=== PATIENT | female | born 2000 | race Two or more races ===

== ENCOUNTER 2021-11-26 09:52 | Outpatient (REF) | payer BC, SELFPAY ==
--- NOTE | ~2021-11-26 | XR_ITS ---
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 The paranasal sinuses are otherwise well aerated and clear. No opacification or air-fluid level to suggest sinusitis is seen. Bony structures are unremarkable. XR/XR sinus min 3V IMPRESSION: No evidence of sinusitis.
--- NOTE | ~2021-11-26 | XR_ITS ---
EXAMINATION: XR CHEST CLINICAL INFORMATION: Chronic cough COMPARISON: None TECHNIQUE: 2 views of the chest were obtained. FINDINGS: No significant abnormality is noted involving the heart, lungs, mediastinum, bony thorax or soft tissues. XR/XR chest 2V IMPRESSION: Unremarkable examination.
== END 2021-11-26 09:53 | disposition home or self-care (01) ==
LOC: HO.XRAY 09:52
PROVIDERS: PCP Pediatrics; Visit Provider Otolaryngology
DX: R05.9 Cough, unspecified (principal); J32.9 Chronic sinusitis, unspecified
CPT/HCPCS: 70220; 71046

== ENCOUNTER 2022-01-15 08:24 | Outpatient (REF) | payer BC, SELFPAY ==
[2022-01-15 10:11] LABS: MANUAL DIFF FLAG NO
[2022-01-15 10:27] LABS: Basophils Percent Auto 0.3 % (0-2); Eosinophils Absolute Auto 0.1 X10*3/uL (0.0-0.4); Eosinophils Percent Auto 0.8 % (0-4); Hematocrit 40.4 % (37.0-47.0); Hemoglobin 13.1 g/dl (12.0-16.0); Imm Gran Abs Auto 0.02 X10*3/uL (0.00-0.03); Imm Gran Pct Auto 0.3 % (0.0-0.4); Lymphocytes Absolute Auto 2.7 X10*3/uL (1.2-4.9); Lymphocytes Percent Auto 41.9 % (20-40); Mean Corpuscular HGB Conc 32.4 g/dl (31.0-35.0); Mean Corpuscular Hemoglobin 29.6 pg (27.0-33.0); Mean Corpuscular Volume 91.4 fL (80.0-98.0); Mean Platelet Volume 9.4 fL (9.4-12.3); Monocytes Absolute Auto 0.5 X10*3/uL (0.1-1.2); Monocytes Percent Auto 7.4 % (2-11); Neutrophils Absolute Auto 3.2 x10*3/uL (2.0-8.3); Neutrophils Percent Auto 49.3 % (45-73); Platelet Count 333 X10*3/uL (160-400); Red Blood Count 4.42 X10*6/uL (4.20-5.50); Red Cell Distribution Width 12.8 % (11.0-16.0); White Blood Count 6.5 X10*3/uL (4.8-10.8)
[2022-01-15 11:03] LABS: Erythrocyte Sedimentation Rate 4 MM/HR (0-20)
[2022-01-18 11:32] LABS: IgA 109 mg/dL (47-310); IgG 1467 mg/dL (600-1640); IgM 170 mg/dL (50-300)
[2022-01-22 18:21] LABS: Asperg fumigatus Precip Abs NEGATIVE (NEGATIVE); Micropoly faeni Abs NEGATIVE (NEGATIVE); Pigeon serum Abs NEGATIVE (NEGATIVE); Saccharo pora viridis Abs NEGATIVE (NEGATIVE); Thermo candidus Abs NEGATIVE (NEGATIVE); Thermoa vulgaris #1 NEGATIVE (NEGATIVE)
== END 2022-01-15 08:25 | disposition home or self-care (01) ==
LOC: HO.LAB 08:24
PROVIDERS: PCP Pediatrics; Visit Provider Hospitalist
DX: J45.909 Unspecified asthma, uncomplicated (principal); R06.00 Dyspnea, unspecified; R91.8 Other nonspecific abnormal finding of lung field; R14.2 Eructation
CPT/HCPCS: 36415; 82784; 82785; 85025; 85652; 86003; 86331; 86606; 86609

== ENCOUNTER → 2022-02-18 15:28 | Outpatient (BNVA) | payer BC, SELFPAY | PROVIDERS: PCP Pediatrics; Visit Provider Hospitalist | DX: Z13.89 Encounter for screening for other disorder (principal) ==

== ENCOUNTER 2022-06-25 10:30 | Outpatient (REF) | payer BC, SELFPAY ==
--- NOTE | ~2022-06-25 | FL_ITS ---
EXAMINATION: FL BARIUM SWALLOW CLINICAL INFORMATION: Gastroesophageal reflux disease without esophagitis. COMPARISON: None TECHNIQUE: Barium swallow examination is performed using fluoroscopic evaluation in addition to multiple fluoroscopic spot views. The patient is imaged both upright and prone and using both thick and thin sulfate along with effervescent granules. Fluoroscopy time: 2.0 minutes DAP: 3.092 Gycm2 Images: 44 FINDINGS: Following oral administration of thick barium and and barium coated turkey in upright view there is normal propagation of bolus from the oral cavity through the pharynx, esophagus into stomach without any evidence of obstruction, narrowing or stricture. On placing patient supine and prone lying and administration of thin barium there is normal distention of the esophagus without any intraluminal filling defect or narrowing. No extrinsic compression. FL/FL barium swallow IMPRESSION: Unremarkable barium swallow exam.
== END 2022-06-25 10:31 | disposition home or self-care (01) ==
LOC: HO.XRAY 10:30
PROVIDERS: PCP Pediatrics; Visit Provider Hospitalist
DX: K21.9 Gastro-esophageal reflux disease without esophagitis (principal)
CPT/HCPCS: 74220

== ENCOUNTER → 2022-09-27 15:38 | Outpatient (BNVA) | payer BC, SELFPAY | PROVIDERS: PCP Pediatrics; Visit Provider Hospitalist | DX: Z23 Encounter for immunization (principal); J45.40 Moderate persistent asthma, uncomplicated; R05.9 Cough, unspecified | CPT/HCPCS: 90471; 90686 ==

== ENCOUNTER 2023-09-29 11:19 | Outpatient (AMB) | payer BC, SELFPAY ==
--- NOTE | 2023-09-29 11:29 | A.OFFVIS_ITS ---
Intake Vital Signs 09/29/23 11:30 Height 4 ft 11 in Weight 120 lb BMI 24.2 BP 120/70 Blood Pressure Location Rt brachial Position Sitting Pulse 89 Pulse Source Pulse Oximeter Pulse Oximetry (%) 100 Oxygen Delivery Method Room Air Intake Visit Reasons: Asthma follow-up Grants Administrator Required: No Allergies No Known Allergies Allergy (Verified 09/29/23 11:33) HPI HPI Comments History of Present Illness Details The patient is a 22-year-old woman who was premature at 30 weeks gestation with a history of asthma. Apparently she was in usual state health until about couple years ago when her symptoms started getting worse again. Will recently she has been having significant cough. Moderate severity. Usually a coarse cough. Usually nonproductive although productive at times. Her cough tends to be throughout the day. She has a rescue inhaler which has been only partial improvement. She was then prescribed Wixela but she cannot get it due to prior approval. She was recently started on Symbicort. She has noticed some improvement on that. Currently she is expecting to have allergy testing in the next week or so. In the meantime she continues to have shortness of breath with activity. Also, feels some of back pain and difficulty expanding her lungs. In the office was so noted to have some wheezing on forced exhalation. We did try to perform spirometry although was difficult for her to do. It domonstrated FEF 25-75 of 60% consistent with small airways. As far as triggers the patient has a bird in her house. Denies any other pets. Not clear if there is any mold in the house. She did have a chest x-ray which appears in viewed by me demonstrating no acute disease. Also had sinus x-rays which were normal. 02/18/2022 the patient is here for a pulmonary follow-up visit. Overall she had been doing well. She was using her Symbicort twice a day with spacer. She was also getting relief from the nebulizer therapy. She did follow-up with additional blood work demonstrating an elevated IgE level the patient did have blood work demonstrating significant allergies to dust mites in addition to other environmental factors. In addition to mold. This is done with the skin testing. The patient is considering allergy shots. The meantime she continues on the antihistamine therapy and also on the singular. She states though that the Symbicort caused her to have some Back discomfort. Therefore, I did request that she decrease the dose to 1 puff twice a day with spacer. If she still continues to have difficulties she I will send her a new inhaler to the pharmacy. Advair HFA will be a good option for her. I do believe that the powder inhalers may be problematic for her throat. The patient recently developed a cold from family member due to a sick contact. Now she is coughing again she does have a nasal congestion and postnasal drip. Will continue to treat her for. We did talk about nasal rinsing and additional allergy therapies to minimize her allergies specially going to the spring[place]. If she continues to have respiratory symptoms she can consider starting Xolair which be a good option in order to treat her significant allergies and also treat her asthma with better response. 05/25/2022 the patient is here for a pulmonary follow-up visit overall the patient has been doing well. She has no longer using the Symbicort. She went back to using her rescue inhaler as needed. She does continue on the singular. she still having episodes of coughing spells. When she starts coughing is difficult for her to breathe in. She has a very sensitive larynx. It is likely resulting in some laryngeal spasms and also vocal cord dysfunction. The patient is also having some issues with her allergies. She is taking the allergy medicines with partial resolution of the symptoms. recently she did develop COVID-19. When she did have COVID seen the cough did get worse. She was also using her rescue inhaler more often. Now it has been about a month or more since that and she is going back to her baseline. Patient does have some issues with chronic cough and also some reflux issues. She also states that she has worsening coughing when she is eating bread. She was unsure if he was doing allergies. We had tested her for celiac and she did test negative however. All measures should wear of that. Most likely has to do with her swallow technique. She was a preemie. the patient also may have reflux issues. Patient will undergo a barium swallow. We also talked about considering speech therapy for or dysfunction in the meantime the patient will like to hold off on the maintenance inhalers. Although Symbicort may be a good option for her to use as needed. 09/27/2022 the patient is here for a pulmonary follow-up visit. Overall the patient has been doing well. She is no longer using any maintenance inhalers. She continues on her Singulair. She states that her cough is significantly better. She has been being diligent about her hypoallergenic covers and prevent thing dust allergies. The patient does benefit from further allergy immunotherapy. At this point the patient is going to school and is hard for her to make the time to have allergy shots. Whenever the patient is able she can let me know and I will refer her back to Allergy in order to consider immunotherapy we did review her barium swallow. No evidence of any reflux or any dysmotility issues. The patient was premature And did have GI issues. Appeared to be better at this time. Otherwise the patient is without other complaints. She did receive a flu shot today. She will follow-up in a year's time with PFTs. If however she has any worsening symptoms prior to that she is always welcome to call the office for an earlier evaluation. 09/29/2023 the patient is here for a pulmonary follow-up visit. Overall she is doing fairly well. She continues with the ongoing nonproductive cough. Moderate severity. Sometimes she does not realizes more people around her. The patient has not been using any nasal therapies. She does continue with her allergy medicine. Also with her allergy avoidance. The patient does have significant postnasal drip. Significant chronic rhinitis with cobblestoning of her posterior pharynx. We did do the spirometry in the office. Her spirometry is perfectly normal which is reassuring. She does have a short-acting beta agonist but she rarely uses it. Will go ahead and start her nasal therapies to minimize her chronic rhinitis and hopefully her upper airway cough syndrome. Otherwise patient is without any other complaints. She will get a flu shot today. [facility] Medical History (Updated 09/29/23 @ 22:22 by Gregg Calle MD) Chronic allergic rhinitis Cough Dyspnea Belching Asthma Social History (Updated 01/15/22 @ 08:36 by RICHARD Dyer) Patient Tobacco Use Status: Never used Tobacco Review of Systems Const Denies poor appetite Eyes Denies change in vision ENT Denies dysphagia, Reports nasal congestion and Reports post nasal drip Card Denies chest pain and Denies dyspnea Resp Reports cough and Denies dyspnea GI Reports belching, Denies dysphagia and Reports dyspepsia Musc Reports no additional complaints Skin/Breast Denies rash Neuro Reports no additional complaints Physical Exam Vital Signs: Last Vital Signs Pulse 89 09/29/23 11:30 BP 120/70 09/29/23 11:30 Pulse Ox 100 09/29/23 11:30 Oxygen Delivery Method Room Air 09/29/23 11:30 BMI result Body Mass Index 24.2 Const General: alert HEENT Throat: Yes postnasal drainage and Yes cobblestoning Neck Neck: Yes normal visual inspection, Yes full ROM and Yes no lymphadenopathy Chest Chest palpation & inspection: normal inspection of the chest Resp Effort & Inspection: Actively coughing Quality: dry Auscultation: clear to auscultation bilaterally and no wheezes Cardio Rate: regular rate Rhythm: regular rhythm Heart sounds: S1 normal heart sound present and S2 normal heart sound present GI Palpation (GI): Soft to palpation and nontender Auscultation: normal bowel sounds Skin General skin exam: rashes and/or lesions noted Office Procedures Spirometry Testing Spirometry Comments: Spirometry done in the office, Dr. Calle has the results results scanned to her chart. 62047- Spirometry Flu Questionnaire Does the patient have a severe egg allergy?: No Does the patient have severe life threatening allergies?: No Does the patient have a fever or illness today?: No Has the patient ever had Guillain-[place] Syndrome?: No Has the patient ever had any past reaction to a flu shot?: No Immunizations flu vacc [id number] 6mos up(PF) 60 mcg(15 mcgx4)/0.5 mL IM syringe Performing Provider: Gregg Calle MD [place] [facility] [place] [facility] Administered by: Libertad Guevara LPN on 09/29/23 12:08 Dose Route Admin Location Dispensed Lot Number Expiration Date NDC Delivery Helper 0.5 mL IM Left Deltoid 0.5 mL [id number] 05/13/24 85628-853-76 [employer] VIS Given Date VIS Provided VIS Publication Date 09/29/23 Single Vaccine 21 Eligibility Eligibility Date Funding Source Not [facility] Eligible 09/29/23 Private Assessment & Plan Assessment & Plan (1) Asthma: Code(s): J45.909 - Unspecified asthma, uncomplicated Qualifiers: Asthma severity: moderate Asthma persistence: persistent Asthma complication type: uncomplicated Qualified Code(s): J45.40 - Moderate persistent asthma, uncomplicated (2) Cough: Code(s): R05.9 - Cough, unspecified Qualifiers: Cough type: chronic Qualified Code(s): R05.3 - Chronic cough (3) Chronic allergic rhinitis: Code(s): J30.9 - Allergic rhinitis, unspecified Plan continue short-acting beta agonist as needed Xopenex as needed for chest tightness via nebulizer Tessalon Perles as needed for cough reflux diet restart fluticasone nasal spray in AM start astelin nasal spray consider Xolair w/wo allergy shots to treat her allergic asthma if worsens follow-up in 12 months with spirometry Orders: Orders AMB Spirometry Testing Today J45.909 - Unspecified asthma, uncomplicated Influenza [id number] Immunization Today Z23 - Encounter for immunization Medications: New fluticasone propionate 50 mcg/actuation 2 sprays intranasal DAILY 30 days 15.8 mL 11RF J31.0 - Chronic rhinitis azelastine administer into each nostril 2 sprays intranasal BID 30 days 30 mL 11RF Refilled montelukast 10 mg PO DAILY 90 days 90 tabs 3RF Coding Level of Care Code Est Pt Level 4 (09979) Diagnoses Moderate persistent asthma without complication J45.40 Asthma severity: moderate Asthma persistence: persistent Asthma complication type: uncomplicated Chronic cough R05.3 Cough type: chronic Chronic allergic rhinitis J30.9 CPT Codes Spirometry - CPT: 21247- Spirometry ([id number]) Time Spent (min) 17
[2023-09-29 11:30] VITALS: BP 120/70; PULSE 89; O2SAT 100; BMI 24.2
== END 2023-09-29 12:05 | disposition home or self-care (01) ==
PROVIDERS: PCP Pediatrics; Visit Provider Hospitalist
DX: J45.40 Moderate persistent asthma, uncomplicated (principal); R05.3 Chronic cough; J30.9 Allergic rhinitis, unspecified
CPT/HCPCS: 94010; 99214

== ENCOUNTER → 2023-09-29 11:19 | Outpatient (BNVA) | payer BC, SELFPAY | PROVIDERS: PCP Pediatrics; Visit Provider Hospitalist | DX: J45.40 Moderate persistent asthma, uncomplicated (principal); R05.3 Chronic cough; J30.9 Allergic rhinitis, unspecified; Z23 Encounter for immunization | CPT/HCPCS: 90471; 90686; 94010 ==

== ENCOUNTER 2024-02-02 10:47 | Outpatient (AMB) | payer BC, SELFPAY ==
[2024-02-02 10:57] VITALS: PULSE 86; O2SAT 98; BMI 25.0
--- NOTE | 2024-02-02 10:57 | A.OFFVIS_ITS ---
Intake Vital Signs 02/02/24 10:57 Height 4 ft 11 in Weight 124 lb BMI 25.0 Pulse 86 Pulse Source Pulse Oximeter Pulse Oximetry (%) 98 Oxygen Delivery Method Room Air Intake Visit Reasons: Want a check up on my asthma and on going cough Small Business Banking Officer Required: No Allergies No Known Allergies Allergy (Verified 02/02/24 10:58) HPI HPI Comments History of Present Illness Details The patient is a 23-year-old woman who was premature at 30 weeks gestation with a history of asthma. Apparently she was in usual state health until about couple years ago when her symptoms started getting worse again. Will recently she has been having significant cough. Moderate severity. Usually a coarse cough. Usually nonproductive although productive at times. Her cough tends to be throughout the day. She has a rescue inhaler which has been only partial improvement. She was then prescribed Wixela but she cannot get it due to prior approval. She was recently started on Symbicort. She has noticed some improvement on that. Currently she is expecting to have allergy testing in the next week or so. In the meantime she continues to have shortness of breath with activity. Also, feels some of back pain and difficulty expanding her lungs. In the office was so noted to have some wheezing on forced exhalation. We did try to perform spirometry although was difficult for her to do. It domonstrated FEF 25-75 of 60% consistent with small airways. As far as triggers the patient has a bird in her house. Denies any other pets. Not clear if there is any mold in the house. She did have a chest x-ray which appears in viewed by me demonstrating no acute disease. Also had sinus x-rays which were normal. 02/18/2022 the patient is here for a pulmonary follow-up visit. Overall she had been doing well. She was using her Symbicort twice a day with spacer. She was also getting relief from the nebulizer therapy. She did follow-up with additional blood work demonstrating an elevated IgE level the patient did have blood work demonstrating significant allergies to dust mites in addition to other environmental factors. In addition to mold. This is done with the skin testing. The patient is considering allergy shots. The meantime she continues on the antihistamine therapy and also on the singular. She states though that the Symbicort caused her to have some Back discomfort. Therefore, I did request that she decrease the dose to 1 puff twice a day with spacer. If she s till continues to have difficulties she I will send her a new inhaler to the pharmacy. Advair HFA will be a good option for her. I do believe that the powder inhalers may be problematic for her throat. The patient recently developed a cold from family member due to a sick contact. Now she is coughing again she does have a nasal congestion and postnasal drip. Will continue to treat her for. We did talk about nasal rinsing and additional allergy therapies to minimize her allergies specially going to the springtime. If she continues to have respiratory symptoms she can consider starting Xolair which be a good option in order to treat her significant allergies and also treat her asthma with better response. 05/25/2022 the patient is here for a pulmonary follow-up visit overall the kierra ent has been doing well. She has no longer using the Symbicort. She went back to using her rescue inhaler as needed. She does continue on the singular. she still having episodes of coughing spells. When she starts coughing is difficult for her to breathe in. She has a very sensitive larynx. It is likely resulting in some laryngeal spasms and also vocal cord dysfunction. The patient is also having some issues with her allergies. She is taking the allergy medicines with partial resolution of the symptoms. recently she did develop COVID-19. When she did have COVID seen the cough did get worse. She was also using her rescue inhaler more often. Now it has been about a month or more since that and she is going back to her baseline. Patient does have some issues with chronic cough and also some reflux issues. She also states that she has worsening coughing when she is eating bread. She was unsure if he was doing allergies. We had tested her for celiac and she did test negative however. All measures should wear of that. Most likely has to do with her swallow technique. She was a preemie. the patient also may have reflux issues. Patient will undergo a barium swallow. We also talked about considering speech therapy for or dysfunction in the meantime the patient will like to hold off on the maintenance inhalers. Although Symbicort may be a good option for her to use as needed. 09/27/2022 the patient is here for a pulmonary follow-up visit. Overall the patient has been doing well. She is no longer using any maintenance inhalers. She continues on her Singulair. She states that her cough is significantly better. She has been being diligent about her hypoallergenic covers and prevent thing dust allergies. The patient does benefit from further allergy immunotherapy. At this point the patient is going to school and is hard for her to make the time to have allergy shots. Whenever the patient is able she can let me know and I will refer her back to Allergy in order to consider immunotherapy we did review her barium swallow. No evidence of any reflux or any dysmotility issues. The patient was premature And did have GI issues. Appeared to be better at this time. Otherwise the patient is without other complaints. She did receive a flu shot today. She will follow-up in a year's time with PFTs. If however she has any worsening symptoms prior to that she is always welcome to call the office for an earlier evaluation. 09/29/2023 the patient is here for a pulmonary follow-up visit. Overall she is doing fairly well. She continues with the ongoing nonproductive cough. Moderate severity. Sometimes she does not realizes more people around her. The patient has not been using any nasal therapies. She does continue with her allergy medicine. Also with her allergy avoidance. The patient does have significant postnasal drip. Significant chronic rhinitis with cobblestoning of her posterior pharynx. We did do the spirometry in the office. Her spirometry is perfectly normal which is reassuring. She does have a short-acting beta agonist but she rarely uses it. Will go ahead and start her nasal therapies to minimize her chronic rhinitis and hopefully her upper airway cough syndrome. Otherwise patient is without any other complaints. She will get a flu shot today. 02/02/2024 the patient is here for a sick visit. She has been having hard time now for about a month. She has been coughing more regularly. The cough tends to be nonproductive in nature. Initially started like a viral syndrome. Then the respiratory symptoms subsided except for the cough. Is been pretty persistent. She has coughing a lot at nighttime. She has been using her rescue inhaler with partial improvement of symptoms. She did go to an urgent care where she was evaluated. She was told that she had bronchitis and she was given a course of steroids. The steroids and not help much. She also has a nebulizer that she started using more regularly. On exam she does have expiratory wheezing and a pulse exhalation cough. We did provide her a breathing treatment in the office and she did have some wheezing afterwards. Explained to the patient that she still continues have an exacerbation of her asthma. And will go ahead and treat her for a lower respiratory infection in the meantime as she could have developed a postviral bacterial infection that may be precipitating the symptoms. The patient is not taking a maintenance inhaler this time. Believe that she will benefit from starting a Advair HFA inhaler twice a day unt il her symptoms improve. [facility] Medical History (Updated 02/05/24 @ 19:46 by Grgeg Calle MD) Chronic allergic rhinitis Cough Dyspnea Belching Asthma Social History (Updated 01/15/22 @ 08:36 by RICHARD Dyer) Patient Tobacco Use Status: Never used Tobacco Review of Systems Const Reports difficulty sleeping and Denies poor appetite Eyes Denies change in vision ENT Denies dysphagia, Reports nasal congestion and Reports post nasal drip Card Denies chest pain and Denies dyspnea Resp Reports cough, Denies dyspnea and Reports wheezing GI Reports belching, Denies dysphagia and Reports dyspepsia Musc Reports no additional complaints Skin/Breast Denies rash Neuro Reports no additional complaints Aller/Immun Reports wheezing Physical Exam Vital Signs: Last Vital Signs Pulse 86 02/02/24 10:57 Pulse Ox 98 02/02/24 10:57 Oxygen Delivery Method Room Air 02/02/24 10:57 BMI result Body Mass Index 25.0 Const General: alert HEENT Throat: Yes postnasal drainage and Yes cobblestoning Neck Neck: Yes normal visual inspection, Yes full ROM and Yes no lymphadenopathy Chest Chest palpation & inspection: normal inspection of the chest Resp Effort & Inspection: Actively coughing Quality: dry and prolonged expiratory phase Auscultation: wheezes and diminished lung sounds Cardio Rate: regular rate Rhythm: regular rhythm Heart sounds: S1 normal heart sound present and S2 normal heart sound present GI Palpation (GI): Soft to palpation and nontender Auscultation: normal bowel sounds Skin General skin exam: rashes and/or lesions noted Assessment & Plan Assessment & Plan (1) Asthma: Code(s): J45.909 - Unspecified asthma, uncomplicated Qualifiers: Asthma complication type: with acute exacerbation Asthma persistence: persistent Asthma severity: moderate Qualified Code(s): J45.41 - Moderate persistent asthma with (acute) exacerbation (2) Cough: Code(s): R05.9 - Cough, unspecified Qualifiers: Cough type: chronic Qualified Code(s): R05.3 - Chronic cough (3) Chronic allergic rhinitis: Code(s): J30.9 - Allergic rhinitis, unspecified Plan Start Medrol pack Start Doxycycline Start Advair HFA continue short-acting beta agonist as needed Xopenex as needed for chest tightness via nebulizer Tessalon Perles as needed for cough reflux diet continue fluticasone nasal spray in AM astelin nasal spray consider Xolair w/wo allergy shots to treat her allergic asthma if worsens follow-up in March/April with spirometry Medications: New doxycycline hyclate 100 mg PO BID 10 days 20 caps 0RF benzonatate 200 mg PO BID 30 days PRN 60 caps 0RF cough fluticasone propion-salmeterol 115-21 mcg/actuation (Advair HFA) 2 puffs inhalation Q12H 30 days 12 grams 11RF methylprednisolone (Medrol (Blaise)) PO PER PKG DIR 6 days 21 ea 0RF Refilled levalbuterol HCl 1.25 mg (3 mL) inhalation BID PRN 180 mL 3RF shortness of breath or wheezing J44.9 - Chronic obstructive pulmonary disease, unspecified Coding Level of Care Code Est Pt Level 4 (28684) Diagnoses Moderate persistent asthma with acute exacerbation J45.41 Asthma complication type: with acute exacerbation Asthma persistence: persistent Asthma severity: moderate Chronic cough R05.3 Cough type: chronic Chronic allergic rhinitis J30.9 Time Spent (min) 18
== END 2024-02-02 11:33 | disposition home or self-care (01) ==
PROVIDERS: PCP Pediatrics; Visit Provider Hospitalist
DX: J45.41 Moderate persistent asthma with (acute) exacerbation (principal); R05.3 Chronic cough; J30.9 Allergic rhinitis, unspecified
CPT/HCPCS: 99214

== ENCOUNTER → 2024-02-02 10:47 | Outpatient (BNVA) | payer BC, SELFPAY | PROVIDERS: PCP Pediatrics; Visit Provider Hospitalist ==

== ENCOUNTER 2024-04-10 15:43 | Outpatient (AMB) | payer BC, SELFPAY ==
--- NOTE | 2024-04-10 15:46 | A.OFFVIS_ITS ---
Vital Signs 04/10/24 15:47 Height 4 ft 11 in Weight 123 lb BMI 24.8 Pulse 93 Pulse Source Pulse Oximeter Pulse Oximetry (%) 96 Oxygen Delivery Method Room Air Intake Visit Reasons: Asthma Radio Control Crane Operator Required: No Allergies No Known Allergies Allergy (Verified 04/10/24 15:48) HPI Comments Details: The patient is a 23-year-old woman who was premature at 30 weeks gestation with a history of asthma. Apparently she was in usual state health until about couple years ago when her symptoms started getting worse again. Will recently she has been having significant cough. Moderate severity. Usually a coarse cough. Usually nonproductive although productive at times. Her cough tends to be throughout the day. She has a rescue inhaler which has been only partial improvement. She was then prescribed Wixela but she cannot get it due to prior approval. She was recently started on Symbicort. She has noticed some improvement on that. Currently she is expecting to have allergy testing in the next week or so. In the meantime she continues to have shortness of breath with activity. Also, feels some of back pain and difficulty expanding her lungs. In the office was so noted to have some wheezing on forced exhalation. We did try to perform spirometry although was difficult for her to do. It domonstrated FEF 25-75 of 60% consistent with small airways. As far as triggers the patient has a bird in her house. Denies any other pets. Not clear if there is any mold in the house. She did have a chest x-ray which appears in viewed by me demonstrating no acute disease. Also had sinus x-rays which were normal. 09/27/2022 the patient is here for a pulmonary follow-up visit. Overall the patient has been doing well. She is no longer using any maintenance inhalers. She continues on her Singulair. She states that her cough is significantly better. She has been being diligent about her hypoallergenic covers and prevent thing dust allergies. The patient does benefit from further allergy immunotherapy. At this point the patient is going to school and is hard for her to make the time to have allergy shots. Whenever the patient is able she can let me know and I will refer her back to Allergy in order to consider immunotherapy we did review her barium swallow. No evidence of any reflux or any dysmotility issues. The patient was premature And did have GI issues. Appeared to be better at this time. Otherwise the patient is without other complaints. She did receive a flu shot today. She will follow-up in a year's time with PFTs. If however she has any worsening symptoms prior to that she is always welcome to call the office for an earlier evaluation. 09/29/2023 the patient is here for a pulmonary follow-up visit. Overall she is doing fairly well. She continues with the ongoing nonproductive cough. Moderate severity. Sometimes she does not realizes more people around her. The patient has not been using any nasal therapies. She does continue with her allergy medicine. Also with her allergy avoidance. The patient does have significant postnasal drip. Significant chronic rhinitis with cobblestoning of her posterior pharynx. We did do the spirometry in the office. Her spirometry is perfectly normal which is reassuring. She does have a short-acting beta agonist but she rarely uses it. Will go ahead and start her nasal therapies to minimize her chronic rhinitis and hopefully her upper airway cough syndrome. Otherwise patient is without any other complaints. She will get a flu shot today. 02/02/2024 the patient is here for a sick visit. She has been having hard time now for about a month. She has been coughing more regularly. The cough tends to be nonproductive in nature. Initially started like a viral syndrome. Then the respiratory symptoms subsided except for the cough. Is been pretty persistent. She has coughing a lot at nighttime. She has been using her rescue inhaler with partial improvement of symptoms. She did go to an urgent care where she was evaluated. She was told that she had bronchitis and she was given a course of steroids. The steroids and not help much. She also has a nebulizer that she started using more regularly. On exam she does have expiratory wheezing and a pulse exhalation cough. We did provide her a breathing treatment in the office and she did have some wheezing afterwards. Explained to the patient that she still continues have an exacerbation of her asthma. And will go ahead and treat her for a lower respiratory infection in the meantime as she could have developed a postviral bacterial infection that may be precipitating the symptoms. The patient is not taking a maintenance inhaler this time. Believe that she will benefit from starting a Advair HFA inhaler twice a day until her symptoms improve. 04/10/2024 the patient is here for pulmonary follow-up visit. She has feeling a lot better. She did complete the antibiotics in the prednisone. The patient also was prescribed Advair but it was not covered apparently. Therefore she only has a rescue inhaler right now. She does not use the inhaler often typically does not times a week. She also has a nebulizer as well. The patient also stopped using her Singulair. Ext vital to go back on specially with her sensitive asthma in the fact that she has not on any maintenance therapy. Right now she is doing well and she does not have any wheezing on examination and she is breathing comfortably. Therefore, will hold off on inhaled cortical steroids at this time. She does have a cough the cough is hacky dry and is likely an upper airway cough syndrome. Carmen Ham worked well in the past. Will go ahead and provide her a script that she can use as needed for cough worsens. In deed went back on the singular also help her cough as it will help with her allergic symptoms. [facility] Medical History (Updated 04/10/24 @ 23:18 by Gregg Calle MD) Chronic allergic rhinitis Cough Dyspnea Belching Asthma Social History (Updated 01/15/22 @ 08:36 by RICHARD Dyer) Patient Tobacco Use Status: Never used Tobacco Review of Systems Const Reports difficulty sleeping and Denies poor appetite Eyes Denies change in vision ENT Denies dysphagia, Reports nasal congestion and Reports post nasal drip Card Denies chest pain and Denies dyspnea Resp Reports cough, Denies dyspnea and Denies wheezing GI Denies belching, Denies dysphagia and Reports dyspepsia Musc Reports no additional complaints Skin/Breast Denies rash Neuro Reports no additional complaints Aller/Immun Denies wheezing Physical Exam Vital Signs: Last Vital Signs Pulse 93 04/10/24 15:47 Pulse Ox 96 04/10/24 15:47 Oxygen Delivery Method Room Air 04/10/24 15:47 BMI result Body Mass Index 24.8 Const General: alert HEENT Throat: Yes postnasal drainage and Yes cobblestoning Neck Neck: Yes normal visual inspection, Yes full ROM and Yes no lymphadenopathy Chest Chest palpation & inspection: normal inspection of the chest Resp Effort & Inspection: normal respiratory effort Auscultation: clear to auscultation bilaterally and no wheezes Cardio Rate: regular rate Rhythm: regular rhythm Heart sounds: S1 normal heart sound present and S2 normal heart sound present GI Palpation (GI): Soft to palpation and nontender Auscultation: normal bowel sounds Skin General skin exam: rashes and/or lesions noted Assessment & Plan Assessment & Plan (1) Asthma: Code(s): J45.909 - Unspecified asthma, uncomplicated Category: Medical Qualifiers: Asthma complication type: uncomplicated Asthma persistence: persistent Asthma severity: moderate Qualified Code(s): J45.40 - Moderate persistent asthma, uncomplicated (2) Cough: Code(s): R05.9 - Cough, unspecified Category: Medical Qualifiers: Cough type: chronic Qualified Code(s): R05.3 - Chronic cough (3) Chronic allergic rhinitis: Code(s): J30.9 - Allergic rhinitis, unspecified Category: Medical Plan Advair HFA continue short-acting beta agonist as needed Xopenex as needed for chest tightness via nebulizer Tessalon Perles as needed for cough reflux diet continue fluticasone nasal spray in AM restart Singulair PM consider Xolair w/wo allergy shots to treat her allergic asthma if worsens follow-up in March/April with spirometry Medications: Refilled benzonatate 200 mg PO BID PRN 60 caps 5RF cough 30 days Coding Level of Care Code Est Pt Level 4 (26177) Diagnoses Moderate persistent asthma without complication J45.40 Asthma complication type: uncomplicated Asthma persistence: persistent Asthma severity: moderate Chronic cough R05.3 Cough type: chronic Chronic allergic rhinitis J30.9 Time Spent (min) 16
[2024-04-10 15:47] VITALS: PULSE 93; O2SAT 96; BMI 24.8
== END 2024-04-10 16:02 | disposition home or self-care (01) ==
PROVIDERS: PCP Pediatrics; Referring Provider Pediatrics; Visit Provider Hospitalist
DX: J45.40 Moderate persistent asthma, uncomplicated (principal); R05.3 Chronic cough; J30.9 Allergic rhinitis, unspecified
CPT/HCPCS: 99214

== ENCOUNTER → 2024-04-10 15:43 | Outpatient (BNVA) | payer BC, SELFPAY | PROVIDERS: PCP Pediatrics; Visit Provider Hospitalist ==

== ENCOUNTER 2025-02-15 16:41 | Outpatient (REF) | payer BC, SELFPAY ==
[2025-02-15 16:52] LABS: MANUAL DIFF FLAG NO
--- OUTSIDE RECORDS SUMMARY | 2025-02-15 17:05 | XMS_ITS | Encounter Summary ---
Author Organization [facility] Address [address] [place] [address] Phone Care Team Providers Care Program Lead Name Role Phone Emperatriz Sosa MD Primary Care Provider [phone] Encounter Details Date Type Department Care Team (Late st Contact Info) Description 10/02/2013 Nurse Only [address] [address] Social History Tobacco Use Types Packs/Day Years Used Date Smoking Tobacco: Never Assessed Comments Unknown Sex and Gender Information Value Date Recorded Sex Assigned at Female 12/14/2019 4:21 PM EST Legal Sex Female 4:07 PM EST Gender Identity Female 12/14/2019 4:21 PM EST Sexual Orientation Straight 12/14/2019 4: 21 PM EST documented as of this encounter Nursing Notes * UNKNOWN, HISTORICAL - 10/02/2013 9:22 AM EST Janett Grady. 2000 NURSE NOTE/VERBAL ORDERS Office/Outpatient Visit Visit Date: Oct 02, 2013 09:22 am Provider: Joyce Mensah LPN (Statement Services Representative: Pramod Polanco MD; Tribal Judge: Joyce Mensah LPN) Location: [facility]. ECTIVE: CC: She is here for the Flu Clinic. enters with dad HPI: No known chronic health conditions. Fever or illness is not present today. No trouble breathing or hives after eating eggs She has not had a reaction to the flu vaccine or other immunization. Flu vaccine VIS was given today.(interim 06/08/13) There were no questions or concerns voiced at today's visit. Allergies: Last Reviewed on 02/15/2013 4:13:15 PM by Alejandra Talley No Known Drug Allergies. OBJECTIVE: Exams: GENERAL APPEARANCE: Alert, active, looks well, mood appropriate ASSESSMENT: V04.81 Flu Clinic ORDERS: Procedures Ordered: Flu Vaccine (In-House) Immunization administration (includes percutaneous, intradermal, subcutaneous or intramuscular injec (In-House) PLAN: Flu Clinic Influenza vaccine > 3 yr given No contraindications noted for flu vaccines. Tolerated well, left office in good condition. Orders: Flu Vaccine (In-House) Immunization administration (includes percutaneous, intradermal, subcutaneous or intramuscular injec (In-House) Patient Recommendations: For Flu Clinic: Influenza (Given) CHARGE CAPTURE: Primary Diagnosis: V04.81 Flu Clinic Orders: [id number] Flu Vaccine (In-House) [address] Immunization administration (includes percutaneous, intradermal, subcutaneous or intramuscular injec (In-House) documented in this encounter Plan of Treatment Not on file documented as of this encounter Visit Diagnoses Not on filedocumented in this encounter Care Teams Program Lead Relationship Specialty Start Date End Date Emperatriz Sosa MD [address] [place] [id number] PCP - General Pediatrics 11/23/22 01/09/25 documented as of this encounter
--- OUTSIDE RECORDS SUMMARY | 2025-02-15 17:05 | XMS_ITS | Clinical Summary ---
Author Organization [facility] Address [address] [facility] [address] [place] [address] Phone Care Team Providers Care Sports Recruiter Name Role Phone Donato Wu MD Primary Care Provider Social History Tobacco Use Types Packs/Day Years Used Date Smoking Tobacco: Never Assessed Education Answer Date Recorded Are you interested in more education? Not on farooq e 03/11/2023 Are you concerned about learning? Not on file 03/11/2023 No 03/11/2023 No 03/11/2023 Digital Access Answer Date Recorded No 04/11/2023 No 04/11/2023 No 04/11/2023 Reliable internet access at home? Not on file 04/11/2023 Device with a working camera? Not on file Sex and Gender Information Value Date Recorded Sex Assigned at Not on file Gender Identity Not on file Sexual Orientation Not on file Plan of Treatment Upcoming Encounters Date Type Department Care Team ([facility] st Contact Info) Description 12/04/2025 11:30 AM EST Office Visit [facility] Medicine [address] [place] [address] Tracey Landa MD [address] [facility], [address] [place] [address] [email or web address] Health Maintenance Due Date Last Done Comments Adult Td,Tdap Booster 2001 DEPRESSION SCREENING 2013 SMOKING Hx and SMOKELESS TOBACCO SCREENING 2014 HPV VACCINES (1 - 3-dose series) 2016 CHLAMYDIA SCREENING 2017 HEPATITIS C SCREENING 2019 HIV ONE-TIME SCREENING (18-65 YEARS) 2019 PAP SMEAR 2022 INFLUENZA VACCINE (#1) 2024 9, 10/02/2013, 09/14/2012, Additional history exists COVID-19 VACCINE (2023- season) 2024 HEPATITIS A VACCINES Aged Out No long er eligible based on patient's age to complete this topic HIB VACCINES Aged Out No longer eligi ble based on patient's age to complete this topic MENINGOCOCCAL VACCINES (ACWY) Aged Out No longer eligible based on patient's age to complete this topic PNEUMOCOCCAL VACCINES (0-49 years) Aged Out No longer eligible based on patient's age to complete this topic Medical Devices Not on file Care Teams Sports Recruiter Relationship Specialty Start Date End Date Donato Wu MD [address] [place] [address] [address] [place] [address] PCP - General Pediatrics 06/26/19 Additional Source Comments The information contained in this document represents components of the legal health record. It is not the complete legal health record.[facility]
--- OUTSIDE RECORDS SUMMARY | 2025-02-15 17:05 | XMS_ITS | Encounter Summary ---
Author Organization [facility] Address [address] [place] [address] Phone Care Team Providers Care Master Data Analyst Name Role Phone Emperatriz Sosa MD Primary Care Provider Encounter Details Date Type Department Care Team (Late st Contact Info) Description 09/06/2011 Nurse Only [address] [address] Social History Tobacco Use Types Packs/Day Years Used Date Smoking Tobacco: Never Assessed Comments Unknown Sex and Gender Information Value Date Recorded Sex Assigned at Female 12/14/2019 4:21 PM EST Legal Sex Female 4:07 PM EST Gender Identity Female 12/14/2019 4:21 PM EST Sexual Orientation Straight 12/14/2019 4: 21 PM EST documented as of this encounter Nursing Notes * UNKNOWN, HISTORICAL - 09/06/2011 5:52 PM EDT Janett Grady. 2000 NURSE NOTE/VERBAL ORDERS Office/Outpatient Visit Visit Date: Sep 06, 2011 05:52 pm Provider: Jesenia Block RN (Air Hammer Operator: Nyla Cottrell MD; Truer Pinion And Wheel: Jesenia Block RN) Location: [facility]. ECTIVE: CC: She is here for the Flu Clinic. Presents with Mom HPI: Fever or illness is not present today. No trouble breathing or hives after eating eggs She has not had a reaction to the flu vaccine or other immunization. Patient has a known chronic health condition of Asthma No current symptoms or complaints. Has not had any recent asthma symptoms. Current medications: albuterol prn, last used in July Flu vaccine VIS was given today.(interim 06/08/11) There were no questions or concerns voiced at today's visit. OBJECTIVE: Exams: GENERAL APPEARANCE: Alert, active, looks well, mood appropriate RESPIRATORY: Normal respiratory rate and pattern with no distress ASSESSMENT: V04.81 Flu Clinic ORDERS: Procedures Ordered: Influenza virus vaccine, split virus, preservative free, > 3 years, for intramuscular use Immunization administration (includes percutaneous, intradermal, subcutaneous or intramuscular injec PLAN: Flu Clinic Influenza vaccine > 3 yr (Preservative Free) given No contraindications noted for flu vaccines. Tolerated well, left office in good condition. Orders: Influenza virus vaccine, split virus, preservative free, > 3 years, for intramuscular use Immunization administration (includes percutaneous, intradermal, subcutaneous or intramuscular injec CHARGE CAPTURE: Primary Diagnosis: V04.81 Flu Clinic Orders: [id number] Influenza virus vaccine, split virus, preservative free, > 3 years, for intramuscular use [id number] Immunization administration (includes percutaneous, intradermal, subcutaneous or intramuscular injec documented in this encounter Plan of Treatment Not on file documented as of this encounter Visit Diagnoses Not on filedocumented in this encounter Care Teams Master Data Analyst Relationship Specialty Start Date End Date Emperatriz Sosa MD [address] [place] [id number] PCP - General Pediatrics 11/23/22 01/09/25 documented as of this encounter
--- OUTSIDE RECORDS SUMMARY | 2025-02-15 17:05 | XMS_ITS | Encounter Summary ---
Author Organization [facility] Address [address] [facility] [address] [place] [address] Phone Care Team Providers Care Liquid Yeast Supervisor Name Role Phone Donato Wu MD Primary Care Provider Encounter Details Date Type Department Care Team (Late st Contact Info) Description 06/26/2019 Ancillary Orders [facility], X-Ray - [address] [place] [address] Nyla Nayak, EMMANUEL [address] [place] [address] Cough Social History Tobacco Use Types Packs/Day Years Used Date Smoking Tobacco: Never Assessed Sex and Gender Information Value Date Recorded Sex Assigned at Not on file Gender Identity Not on file Sexual Orientation Not on file documented as of this encounter Plan of Treatment Upcoming Encounters Date Type Department Care Team (Late Contact Info) Description 12/04/2025 11:30 AM EST Office Visit [facility] Medicine [address] [place] [address] Tracey Landa MD [address] [place] [address], [address] [place] [address] [email or web address] documented as of this encounter Results * XR CHEST PA AND LATERAL 2 VIEWS (06/26/2019 5:45 PM EDT) Anatomical Region Laterality Modality Chest Radiographic Yessenia ging 06/26/2019 6:21 PM EDT Impressions 06/26/2019 6:21 PM EDT normal chest. ?? POS - [id number] Narrative 06/26/2019 6:21 PM EDT EXAM: ??XR CHEST PA AND LATERAL 2 VIEWS COMPARISON: None FINDINGS: Heart and pulmonary vascularity are normal. ??No infiltrates or effusions are seen. ??Mediastinum has a normal appearance. ??Bony structures are intact. Procedure Note Senthil Sloan MD - 06/26/2019 EXAM: XR CHEST PA AND LATERAL 2 VIEWS COMPARISON: None FINDINGS: Heart and pulmonary vascularity are normal. No infiltrates or effusionsare seen. Mediastinum has a normal appearance. Bony structures areintact. IMPRESSION: normal chest. POS - [id number] Nyla Nayak UTILIZATION REVIEW COORDINATOR IMG XR CHEST documented in this encounter Visit Diagnoses Diagnosis Cough Cough documented in this encounter Care Teams Liquid Yeast Supervisor Relationship Specialty Start Date End Date Donato Wu MD [address] [place] [address] [address] [place] [address] PCP - General Pediatrics 06/26/19 documented as of this encounter Additional Source Comments The information contained in this document represents components of the legal health record. It is not the complete legal health record.[facility]
--- OUTSIDE RECORDS SUMMARY | 2025-02-15 17:06 | XMS_ITS | Encounter Summary ---
Author Organization [facility] Address [address] [place] [address] Phone Care Team Providers Care Keno Clerk Name Role Phone Emperatriz Sosa MD Primary Care Provider [phone] Encounter Details Date Type Department Care Team (Late st Contact Info) Description 09/14/2012 Nurse Only [address] [address] Social History Tobacco Use Types Packs/Day Years Used Date Smoking Tobacco: Never Assessed Comments Unknown Sex and Gender Information Value Date Recorded Sex Assigned at Female 12/14/2019 4:21 PM EST Legal Sex Female 4:07 PM EST Gender Identity Female 12/14/2019 4:21 PM EST Sexual Orientation Straight 12/14/2019 4: 21 PM EST documented as of this encounter Nursing Notes * UNKNOWN, HISTORICAL - 09/14/2012 4:05 PM EDT Janett Grady. 2000 NURSE NOTE/VERBAL ORDERS Office/Outpatient Visit Visit Date: Sep 14, 2012 04:05 pm Provider: Ni Weaver CMA (Assembly Member: Nyla Cottrell MD; Vacuum Filter Operator: Ni Weaver CMA) Location: [facility]. ECTIVE: CC: She is here for the Flu Clinic. HPI: Fever or illness is not present today. No trouble breathing or hives after eating eggs She has not had a reaction to the flu vaccine or other immunization. Patient has a known chronic health condition of Asthma No current symptoms or complaints. Has not had any recent asthma symptoms. Current medications: None Flu vaccine VIS was given today.(interim 05/15/12) There were no questions or concerns voiced at today's visit. OBJECTIVE: Exams: GENERAL APPEARANCE: Alert, active, looks well, mood appropriate ASSESSMENT: V04.81 Flu Clinic ORDERS: Procedures Ordered: Influenza virus vaccine, split virus, preservative free, > 3 years, for intramuscular use (In-House) Immunization administration (includes percutaneous, intradermal, subcutaneous or intramuscular injec (In-House) PLAN: Flu Clinic Influenza vaccine > 3 yr (Preservative Free) given No contraindications noted for flu vaccines. Tolerated well, left office in good condition. Orders: Influenza virus vaccine, split virus, preservative free, > 3 years, for intramuscular use (In-House) Immunization administration (includes percutaneous, intradermal, subcutaneous or intramuscular injec (In-House) CHARGE CAPTURE: Primary Diagnosis: V04.81 Flu Clinic Orders: [id number] Influenza virus vaccine, split virus, preservative free, > 3 years, for intramuscular use (In-House) [id number] Immunization administration (includes percutaneous, intradermal, subcutaneous or intramuscular injec (In-House) documented in this encounter Plan of Treatment Not on file documented as of this encounter Visit Diagnoses Not on filedocumented in this encounter Care Teams Keno Clerk Relationship Specialty Start Date End Date Emperatriz Sosa MD [address] [place] [id number] PCP - General Pediatrics 11/23/22 01/09/25 documented as of this encounter
--- OUTSIDE RECORDS SUMMARY | 2025-02-15 17:06 | XMS_ITS | Encounter Summary ---
Author Organization [facility] Address [address] [place] [address] Phone Care Team Providers Care E Commerce Manager Name Role Phone Emperatriz Sosa MD Primary Care Provider [phone] Reason for Visit * Reason Onset Date Comments Med Refill 12/30/2021 Encounter Details Date Type Department Care Team (Late st Contact Info) Description 12/30/[address] [facility], [address] [place] [address] Donato Wu MD Cough due to bronchospasm Social History Tobacco Use Types Packs/Day Years Used Date Smoking Tobacco: Never Smokeless Tobacco: Never Comments:Never Smoker Alcohol Use Standard Drinks/Week Comments Never 0 (1 standard drink = 0.6 oz pur e alcohol) Hunger/Food Answer Date Recorded In the last 12 months, did y ou or your family ever eat less than you felt you should because there wasn't enough money for food? No 12/28/2021 Stable Housing Answer Date Recorded Are you worried that in the next 2 months you may not have stable housing? No 12/28/2021 Transportation Concerns Answer Date Rec orded In the last 12 months, have you or your family ever had to go without healthcare because you didn't have a way to get there? No 12/28/2021 Hazards in Home Answer Date Recorded Think about the place you li ve. Do you have problems with any of the following? Pests (mice or roaches), mold, no/not working smoke detectors, water leaks, no window guards. No 2021 Financing Utilities Answer Date Recorde d In the last 12 months, has t he electric, gas, oil, or water company threatened to shut off your services in your home? No 12/28/2021 Safety at Home Answer Date Recorded Are you or your family worried about feeling saf e in your home? No 12/28/2021 Outside Support Answer Date Recorded Do you feel that you need mo re support from other people or programs to help you care for yourself or your family? No 12/28/2021 Understanding Health Concerns Answer Da te Recorded Do you need help understandi ng your or your child's healthcare needs (diagnosis, medications, plan, etc.)? No 12/28/2021 Financing Health Concerns Answer Date R ecorded In the last 12 months, was t here a time when your child needed to see a doctor or get medications or supplies but could not because of cost? No 12/28/2021 Missing School or Work Answer Date Artem rded Did you or your child miss s chool or work because of a health problem that could have been avoided? No 12/28/2021 Comments No Sex and Gender Information Value Date Recorded Sex Assigned at Female 12/14/2019 4:21 PM EST Legal Sex Female 4:07 PM EST Gender Identity Female 12/14/2019 4:21 PM EST Sexual Orientation Straight 12/14/2019 4: 21 PM EST documented as of this encounter Miscellaneous Notes * Telephone Encounter - Aranza Mauricio [place] - 12/31/2021 9:41 AM EST [facility] 12/28/21. rx pended for pcp review documented in this encounter Plan of Treatment Not on file documented as of this encounter Visit Diagnoses Diagnosis Cough due to bronchospasm documented in this encounter Care Teams E Commerce Manager Relationship Specialty Start Date End Date Emperatriz Sosa MD A [facility] [address] [place] [address] PCP - General Pediatrics 11/23/22 01/09/25 documented as of this encounter
--- OUTSIDE RECORDS SUMMARY | 2025-02-15 17:06 | XMS_ITS | Clinical Summary ---
Author Organization [facility] Address [address] [place] [address] Phone Care Team Providers Care Test And Balance Engineer Name Role Phone Unavailable Primary Care Provider Unavailabl e Allergies No known active allergies Medications fluticasone (Flonase) 50 MCG/ACT nasal sprayIndications: Seasonal allergies Administer 1 spray into each nostril daily. 1 Units 2 1 Active loratadine 10 MG tabletIndications :Seasonal allergies Take 1 tablet (10 mg total) by mouth once daily. 90 tablet 1 Active montelukast 10 MG tabletIndications :Moderate persistent asthma without complication Take 1 tablet (10 mg total) by mouth nightly. 90 tablet 2 3 Active albuterol HFA 108 (90 Base) MCG/ACT inhalerIndication s:Mild persistent asthma without complication Inhale 2 puffs every 4 (four) hours as needed for shortness of breath for up to 7 days. 1 Units 1 4 Active Active Problems Problem Noted Date Diagnosed Date Mild persistent asthma without complication 12/15 Assessment & Plan (01/02/2024 4:08 PM EST): ACT 22. Pulm f/u 10/06 w yearly f/u recommended. No longer on symbicort or ICS. Continues w montelukast 10mg and albuterol prn. Emphasized need for spacer. Moderate persistent asthma without complication 06/02/2021 Overview (04/26/2022): Currently under treatment from Dr Herrera ( although I have no records)--taking Singulair and has been prescribed Wixela ( but not available--needs prior auth). Continues to have cough and some breathing difficulty. Reported to have a normal CXR and Sinus xrays. Formal allergy testing is planned. Consult note reviewed-- History of asthma. Chronic cough-unexplained Follow clinically. Continue present management. Now being followed by Pulmonology ( Dr Calle at [facility])--see consult notes--most recent follow-up on 02/18/2022. Currently on Symbicort ( and astelin and Xyzal for allergies) Now covid positive, but no exacerbation of asthma. Assessment & Plan (01/26/2024 5:25 PM EDT): Will treat with prednisone 20mg twice daily for 5 days. Also will use albuterol minimum of 3x's/day until cough is improved. If worsening cough, respiratory distress or shortness of breath and /or fever, she will call back for f/u Assessment & Plan (01/02/2024 3:51 PM EST): Saw pulm 10/06 for f/u. Assessment & Plan (12/30/2022 5:26 PM EST): Seen by pulmonary last spring. Was on symbicort but has stopped as she said it make things worse . Now just on montelukast and xopenex prn. No refills needed just now. Pt unclear about how often she uses rescue med. Speaks little. But doesn't feel SOB, no night time cough. Denies exercise intolerance. In past, she has needed maintenance med per pulmonary but if she doesn't feel she needs, she can direct that choice. If needs additional rx, would need re-eval. May be time to transition to adult care. Assessment & Plan (04/26/2022 10:58 AM EDT): Now covid positive, but no exacerbation of asthma. Continue present medication regimen including preventive treatment if indicated. Treat appropriate symptoms ( cough, wheeze, increased work of breathing) as soon as noted with Albuterol HFA or nebulizer q 4h. Add inhaled steroid if not improved as indicated in plan. Consider oral steroid if ongoing concerns ( notify office) Return in 4-6 months for asthma review; sooner if symptoms change Assessment & Plan (12/28/2021 4:28 PM EST): Currently under treatment from Dr Herrera ( although I have no records)--taking Singulair and has been prescribed Wixela ( but not available--needs prior auth). Continues to have cough and some breathing difficulty. Reported to have a normal CXR and Sinus xrays. Formal allergy testing is planned. Follow clinically. Continue present management. Will refer to pulmonology for second opinion. Assessment & Plan (06/02/2021 6:11 PM EDT): Continues with frequent dry cough, minimal relief with albuterol. No fever. Otherwise well. Allergies improved on current treatment. Will add prednisone. Continue albuterol as needed. Side effects reviewed. Seasonal allergies 06/02/2021 Overview (12/28/2021): Currently under treatment from Dr Herrera ( although I have no records)--taking Singulair and has been prescribed Wixela ( but not available--needs prior auth). Continues to have cough and some breathing difficulty. Reported to have a normal CXR and Sinus xrays. Formal allergy testing is planned. Follow clinically. Continue present management. May use Claritin prn. Assessment & Plan (12/28/2021 4:29 PM EST): Discussed seasonal allergies and potential for avoidance. Consider use of OTC antihistamines ( Claritin or Zyrtec) during the season. May add Flonase if needed. Return if signs of sinus infection noted including headache, fever or localized pain. Specific testing is planned. Assessment & Plan (06/02/2021 6:10 PM EDT): Symptoms are improved on claritin and flonase, no longer with nasal discharge or congestion. Acne vulgaris 03/10/2017 Overview (12/14/2019): Continues to note some scattered acne of face ( especially at hairline)--can be of variable severity. Has used OTC facial wash in the past. Assessment & Plan (12/30/2022 5:28 PM EST): Pt brings up concern at end of visit. Discuss, as time permitted, acne care. Rx'd tretinoin 0.1% qonight for one week and then nightly as tolerated. Can use BP in am. F/u in 8 wks for recheck. Assessment & Plan (12/14/2019 4:18 PM EST): Continues to note some scattered acne of face ( especially at hairline)--can be of variable severity. Has used OTC facial wash in the past. Avoid anything that aggravates your acne. Use caution with cosmetics, skin cleansers and hair products. The most effective OTC medication is benzoyl peroxide ( use products containing 2.5-5% strengths)( the 4% wash is especially worthwhile). Adapalene is now available OTC as well. Read the handout on how to use your acne medications . Be patient, acne treatments may take 4-8 weeks to show improvement. Recall if prescription is desired. Assessment & Plan (12/07/2018 4:28 PM EST): Using OTC acne wash, but not always consistent. Fairly happy with results. The current medical regimen is effective; continue present plan and medications. If additional treatment desired, would consider addition of adapalene ( OTC available) Assessment & Plan (03/10/2017 5:43 PM EDT): Continue present care, given handout on treatment options, next step would be tretinoin if interested. Resolved Problems Problem Noted Date Diagnosed Date Resolved Date COVID-19 virus infection 04/26/2022 Overview (04/26/2022): Tested positive at home on 04/24/2022 ( multiple family members also positive). History of nasal congestion for 2 days associated with slight sore throat, cough and malaise. No fever nor breathing difficulties. No loss of taste nor smell. Candidate for Paxlovid due to persistent asthma Assessment & Plan (04/26/2022 10:57 AM EDT): Tested positive at home on 04/24/2022 ( multiple family members also positive). History of nasal congestion for 2 days associated with slight sore throat, cough and malaise. No fever nor breathing difficulties. No loss of taste nor smell. Candidate for Paxlovid due to persistent asthma The recent covid testing was positive ?? Recommend standard infectious precautions (covering cough, handwashing, social distancing) Self-isolate for at least 5 days since symptoms first appeared AND at least 24 hour of being fever-free with improved signs/symptoms. Wear a mask around others for 10 days ?? Increase fluid intake ?? Acetaminophen or ibuprofen for fever relief as needed ?? Avoid over the counter cough and cold medications. ?? Call if no improvement in 1 week ?? Seek care in ED for worsening cough, difficulty breathing, chest pain, rash, mouth lesions. Immunizations Immunization Administration Dates Next Due DTaP 5 11/12/2005, 3,05/24/2002,03/29,01/26/2002 H1N1 Inj 09/17/2009 HPV Vaccine 9 Valent 12/29/2022 Hep B, ped/adol 07/31/2002,05/24/2002,2001 Hib (HbOC) 02/12/2003, 2,03/29/2002,01/26 IPV 11/12/2005, 3,03/29/2002,01/26 Influenza, injectable, quadr ivalent, preservative free 09/29/2023,09/27/2022,08/18/2021,09/30,09/06/2019,12/07/2018 Influenza, injectable, triva lent, preservative free 10/02/2013,09/14/2012,09/06/2011,08/30,10/17/2009 MMR 02/12/2003 MMRV 11/09/2006 Meningococcal B Bexsero 01/02/2024 Meningococcal Conj (Menactra) MCV4P 12/14/2019,0 02/21/2014 Pneumococcal Conjugate 05/20/2003,2001,03/29/2002,01/26 Tdap 02/21/2014 Varicella 11/30/2002 Social History Tobacco Use Types Packs/Day Years [...] there wasn't enough money for food? No 01/02/2024 Stable Housing Answer Date Recorded Are you worried that in the next 2 months you may not have stable housing? No 01/02/2024 Transportation Concerns Answer Date Rec orded In the last 12 months, have you or your family ever had to go without healthcare because you didn't have a way to get there? No 01/02/2024 Hazards in Home Answer Date Recorded Think about the place you li ve. Do you have problems with any of the following? Pests (mice or roaches), mold, no/not working smoke detectors, water leaks, no window guards. No 2023 Financing Utilities Answer Date Recorde d In the last 12 months, has t he electric, gas, oil, or water company threatened to shut off your services in your home? No 01/02/2024 Safety at Home Answer Date Recorded Are you or your family worried about feeling saf e in your home? No 01/02/2024 Outside Support Answer Date Recorded Do you feel that you need mo re support from other people or programs to help you care for yourself or your family? No 01/02/2024 Understanding Health Concerns Answer Da te Recorded Do you need help understandi ng your or your child's healthcare needs (diagnosis, medications, plan, etc.)? No 01/02/2024 Financing Health Concerns Answer Date R ecorded In the last 12 months, was t here a time when your child needed to see a doctor or get medications or supplies but could not because of cost? No 01/02/2024 Missing School or Work Answer Date Artem rded Did you or your child miss s chool or work because of a health problem that could have been avoided? No 01/02/2024 Comments No Sex and Gender Information Value Date Recorded Sex Assigned at Female 12/14/2019 4:21 PM EST Legal Sex Female 4:07 PM EST Gender Identity Female 12/14/2019 4:21 PM EST Sexual Orientation Straight 12/14/2019 4: 21 PM EST Last Filed Vital Signs Vital Sign Reading Time Taken Comments Blood Pressure 116/68 01/26/2024 3:05 PM EDT Pulse 94 01/26/2024 3:05 PM EDT Temperature 36.9 ??C (98.5 ??F) 01/26/2024 3:05 PM ED T Respiratory Rate 18 01/26/2024 3:05 PM EDT Oxygen Saturation 99% 01/26/2024 3:05 PM EDT Inhaled Oxygen Concentration - - Weight 56.4 kg (124 lb 6 oz) 01/26/2024 3:05 PM EDT Height 151 cm (4' 11.45 ) 01/02/2024 3:28 PM EST Body Mass Index 24.74 01/02/2024 3:28 PM EST Plan of Treatment Health Maintenance Due Date Last Done Comments HPV Vaccines (2 - 3-dose series) 01/26/2023 12/29/2022 DTaP,Tdap,and Td Vaccines (7 - Td or Tdap) 02/22/2024 02/21/2014, 11/12/2005, 05/20/2003, Additional history exists Men B Vaccine (2 of 2 - Bexsero SCDM 2-dose series) 07/02/2024 01/02/2024 Hepatitis B Vaccines Completed 07/31/2002, 05/24/2002, 2001 HIB Vaccines Completed 02/12/2003, 05/14, 03/29/2002, Additional history exists Pneumococcal Vaccine Completed 05/20/2003, 05/24/2002, 03/29/2002, Additional history exists IPV Vaccines Completed 11/12/2005, 11/14, 03/29/2002, Additional history exists MMR Vaccines Completed 11/09/2006, 02/12/2003 Varicella Vaccines Completed 11/09/2006, 11/30/2002 Meningococcal Vaccine Completed 12/14/2019, 014 COVID-19 Vaccine Completed 12/06/2024, 02/2022, 03/18/2021, Additional history exists Influenza Vaccines Completed 12/06/2024, 1 11/29/2022, 09/27/2022, Additional history exists Hepatitis A Vaccines Aged Out No long er eligible based on patient's age to complete this topic Insurance [facility]
--- OUTSIDE RECORDS SUMMARY | 2025-02-15 17:06 | XMS_ITS | Encounter Summary ---
Author Organization [facility] Address [address] [place] [id number] Phone Care Team Providers Care Hvac Technician Residential Name Role Phone Emperatriz Sosa MD Primary Care Provider [phone] Encounter Details Date Type Department Care Team (Late st Contact Info) Description 08/30/2010 Nurse Only [address] [address] Social History Tobacco Use Types Packs/Day Years Used Date Smoking Tobacco: Never Assessed Comments Unknown Sex and Gender Information Value Date Recorded Sex Assigned at Female 12/14/2019 4:21 PM EST Legal Sex Female 4:07 PM EST Gender Identity Female 12/14/2019 4:21 PM EST Sexual Orientation Straight 12/14/2019 4: 21 PM EST documented as of this encounter Nursing Notes * UNKNOWN, HISTORICAL - 08/30/2010 1:01 PM EDT Janett Grady. 2001 NURSE NOTE/VERBAL ORDERS Office/Outpatient Visit Visit Date: Aug 30, 2010 01:01 pm Provider: Catie Ken LPN (Assembly Detailer: Samia Castellon MD) Location: [facility]. ECTIVE: CC: She is here for the Flu Clinic. HPI: Fever or illness is not present today. No trouble breathing or hives after eating eggs She has not had a reaction to the flu vaccine or other immunization. Patient has a known chronic health condition of Asthma No current symptoms or complaints. Has not had any recent asthma symptoms. Current medications: none Flu vaccine VIS was given today.(interim 06/23/10) There were no questions or concerns voiced [...] CAPTURE: Primary Diagnosis: V04.81 Flu Clinic Orders: [id number] Influenza virus vaccine, split virus, preservative free, > 3 years, for intramuscular use [id number] Immunization administration (includes percutaneous, intradermal, subcutaneous or intramuscular injec documented in this encounter Plan of Treatment Not on file documented as of this encounter Visit Diagnoses Not on filedocumented in this encounter Care Teams Hvac Technician Residential Relationship Specialty Start Date End Date Emperatriz Sosa MD [address] [place] [id number] PCP - General Pediatrics 11/23/22 01/09/25 documented as of this encounter
[2025-02-15 18:47] LABS: Anion Gap 12 (12-20); Blood Urea Nitrogen 21 mg/dL (9-16); Calcium 9.6 mg/dL (8.4-10.2); Carbon Dioxide 26 mmol/L (22-29); Chloride 108 mmol/L (96-108); Estimated Glomerular Filt Rate > 60; Glucose Random 83 mg/dL (60-115); Potassium 3.8 mmol/L (3.3-5.1); Sodium 142 mmol/L (135-145)
[2025-02-15 19:06] LABS: Basophils Percent Auto 0.3 % (0-2); Eosinophils Absolute Auto 0.1 X10*3/uL (0.0-0.4); Eosinophils Percent Auto 0.9 % (0-4); Hematocrit 38.9 % (37.0-47.0); Hemoglobin 12.9 g/dl (12.0-16.0); Imm Gran Abs Auto 0.03 X10*3/uL (0.00-0.03); Imm Gran Pct Auto 0.3 % (0.0-0.4); Lymphocytes Absolute Auto 2.7 X10*3/uL (1.2-4.9); Lymphocytes Percent Auto 28.9 % (20-40); Mean Corpuscular HGB Conc 33.2 g/dl (31.0-35.0); Mean Corpuscular Hemoglobin 29.9 pg (27.0-33.0); Mean Corpuscular Volume 90.3 fL (80.0-98.0); Mean Platelet Volume 9.5 fL (9.4-12.3); Monocytes Absolute Auto 0.7 X10*3/uL (0.1-1.2); Monocytes Percent Auto 7.2 % (2-11); Neutrophils Absolute Auto 5.8 x10*3/uL (2.0-8.3); Neutrophils Percent Auto 62.4 % (45-73); Platelet Count 333 X10*3/uL (160-400); Red Blood Count 4.31 X10*6/uL (4.20-5.50); Red Cell Distribution Width 12.7 % (11.0-16.0); White Blood Count 9.3 X10*3/uL (4.8-10.8)
[2025-02-15 20:59] LABS: Erythrocyte Sedimentation Rate 7 MM/HR (0-20)
[2025-02-20 20:43] LABS: Immunoglobulin E 104 kU/L (<OR=114)
== END 2025-02-15 16:42 | disposition home or self-care (01) ==
LOC: HO.LAB 16:41
PROVIDERS: Visit Provider Hospitalist
DX: J45.40 Moderate persistent asthma, uncomplicated (principal); J30.9 Allergic rhinitis, unspecified
CPT/HCPCS: 36415; 80048; 82785; 85025; 85652

== ENCOUNTER 2025-05-08 10:03 | Outpatient (AMB) | payer BC, SELFPAY ==
--- NOTE | 2025-05-08 10:09 | A.OFFVIS_ITS ---
Vital Signs 05/08/25 10:10 Height 4 ft 11 in Weight 117 lb 15.157 oz BMI 23.8 BP 96/70 Blood Pressure Location Lt brachial Position Sitting Pulse 96 Pulse Source Pulse Oximeter Pulse Oximetry (%) 97 Oxygen Delivery Method Room Air Intake Visit Reasons: Asthma/Allergies Composition Roll Maker And Cutter Required: No Allergies No Known Allergies Allergy (Verified 05/08/25 10:16) HPI Comments Details: The patient is a 24 year-old woman who was premature at 30 weeks gestation with a history of asthma. Apparently she was in usual state health until about couple years ago when her symptoms started getting worse again. Will recently she has been having significant cough. Moderate severity. Usually a coarse cough. Usually nonproductive although productive at times. Her cough tends to be throughout the day. She has a rescue inhaler which has been only partial improvement. She was then prescribed Wixela but she cannot get it due to prior approval. She was recently started on Symbicort. She has noticed some improvement on that. Currently she is expecting to have allergy testing in the next week or so. In the meantime she continues to have shortness of breath with activity. Also, feels some of back pain and difficulty expanding her lungs. In the office was so noted to have some wheezing on forced exhalation. We did try to perform spirometry although was difficult for her to do. It domonstrated FEF 25-75 of 60% consistent with small airways. As far as triggers the patient has a bird in her house. Denies any other pets. Not clear if there is any mold in the house. She did have a chest x-ray which appears in viewed by me demonstrating no acute disease. Also had sinus x-rays which were normal. 09/27/2022 the patient is here for a pulmonary follow-up visit. Overall the patient has been doing well. She is no longer using any maintenance inhalers. She continues on her Singulair. She states that her cough is significantly better. She has been being diligent about her hypoallergenic covers and prevent thing dust allergies. The patient does benefit from further allergy immun otherapy. At this point the patient is going to school and is hard for her to make the time to have allergy shots. Whenever the patient is able she can let me know and I will refer her back to Allergy in order to consider immunotherapy we did review her barium swallow. No evidence of any reflux or any dysmotility issues. The patient was premature And did have GI issues. Appeared to be better at this time. Otherwise the patient is without other complaints. She did receive a flu shot today. She will follow-up in a year's time with PFTs. If however she has any worsening symptoms prior to that she is always welcome to call the office for an earlier evaluation. 09/29/2023 the patient is here for a pulmonary follow-up visit. Overall she is doing fairly well. She continues with the ongoing nonproductive cough. Moderate severity. Sometimes she does not realizes more people around her. The patient has not been using any nasal therapies. She does continue with her allergy medicine. Also with her allergy avoidance. The patient does have significant postnasal drip. Significant chronic rhinitis with cobblestoning of her posterior pharynx. We did do the spirometry in the office. Her spirometry is perfectly normal which is reassuring. She does have a short-acting beta agonist but she rarely uses it. Will go ahead and start her nasal therapies to minimize her chronic rhinitis and hopefully her upper airway cough syndrome. Otherwise patient is without any other complaints. She will get a flu shot today. 02/02/2024 the patient is here for a sick visit. She has been having hard time now for about a month. She has been coughing more regularly. The cough tends to be nonproductive in nature. Initially started like a viral syndrome. Then the respiratory symptoms subsided except for the cough. Is been pretty persistent. She has coughing a lot at nighttime. She has been using her rescue inhaler with partial improvement of symptoms. She did go to an urgent care where she was evaluated. She was told that she had bronchitis and she was given a course of steroids. The steroids and not help much. She also has a nebulizer that she started using more regularly. On exam she does have expiratory wheezing and a pulse exhalation cough. We did provide her a breathing treatment in the office and she did have some wheezing afterwards. Explained to the patient that she still continues have an exacerbation of her asthma. And will go ahead and treat her for a lower respiratory infection in the meantime as she could have developed a postviral bacterial infection that may be precipitating the symptoms. The patient is not taking a maintenance inhaler this time. Believe that she will benefit from starting a Advair HFA inhaler twice a day until her symptoms improve. 04/10/2024 the patient is here for pulmonary follow-up visit. She has feeling a lot better. She did complete the antibiotics in the prednisone. The patient also was prescribed Advair but it was not covered apparently. Therefore she only has a rescue inhaler right now. She does not use the inhaler often typically does not times a week. She also has a nebulizer as well. The patient also stopped using her Singulair. Ext vital to go back on specially with her sensitive asthma in the fact that she has not on any maintenance therapy. Right now she is doing well and she does not have any wheezing on examination and she is breathing comfortably. Therefore, will hold off on inhaled cortical steroids at this time. She does have a cough the cough is hacky dry and is likely an upper airway cough syndrome. Shejerson Jitendra worked well in the past. Will go ahead and provide her a script that she can use as needed for cough worsens. Indeed went back on the singular also help her cough as it will help with her allergic symptoms. 05/08/2025 the patient is here for a pulmonary follow-up visit. She has had multiple symptoms lately. She has been having more allergy symptoms including cough chronic rhinitis asthma and also rash. She started developing hives as well. She has tried corticosteroids in addition to antihistamines with no significant improvement of the symptoms. She has been very uncomfortable. The patient did have blood work done. In addition to that she has had allergy testing positive for known allergens. As far as her inhalers Advair was pre scribed in addition to a BENTON that she uses as needed. I do believe that based on her allergic asthma and her chronic spontaneous uticaria she will be a good candidate for Xolair. In the meantime also placed a referral in for allergy. [facility] Medical History (Updated 05/08/25 @ 12:41 by Gregg Calle MD) Allergic urticaria Chronic allergic rhinitis Cough Dyspnea Belching Asthma Social History Patient Tobacco Use Status: Never used Tobacco Review of Systems Const Reports difficulty sleeping and Denies poor appetite Eyes Denies change in vision ENT Denies dysphagia, Reports nasal congestion and Reports post nasal drip Card Denies chest pain and Denies dyspnea Resp Reports cough, Denies dyspnea and Reports wheezing GI Denies belching, Denies dysphagia and Reports dyspepsia Musc Reports no additional complaints Skin/Breast Reports rash Neuro Reports no additional complaints Aller/Immun Reports urticaria and Reports wheezing Physical Exam Vital Signs: Last Vital Signs Pulse 96 05/08/25 10:10 BP 96/70 05/08/25 10:10 Pulse Ox 97 05/08/25 10:10 Oxygen Delivery Method Room Air 05/08/25 10:10 BMI result Body Mass Index 23.8 Const General: alert HEENT Throat: Yes postnasal drainage and Yes cobblestoning Neck Neck: Yes normal visual inspection, Yes full ROM and Yes no lymphadenopathy Chest Chest palpation & inspection: normal inspection of the chest Resp Effort & Inspection: normal respiratory effort Auscultation: diminished lung sounds Cardio Rate: regular rate Rhythm: regular rhythm Heart sounds: S1 normal heart sound present and S2 normal heart sound present GI Palpation (GI): Soft to palpation and nontender Auscultation: normal bowel sounds Skin Rashes: rashes noted (hives scattered through out) Assessment & Plan Assessment & Plan (1) Asthma: Code(s): J45.909 - Unspecified asthma, uncomplicated Category: Medical Qualifiers: Asthma complication type: uncomplicated Asthma persistence: persistent Asthma severity: moderate Qualified Code(s): J45.40 - Moderate persistent asthma, uncomplicated (2) Cough: Code(s): R05.9 - Cough, unspecified Category: Medical Qualifiers: Cough type: chronic Qualified Code(s): R05.3 - Chronic cough (3) Chronic allergic rhinitis: Code(s): J30.9 - Allergic rhinitis, unspecified Category: Medical (4) Allergic urticaria: Code(s): L50.0 - Allergic urticaria Category: Medical Plan Advair HFA continue short-acting beta agonist as needed Xopenex as needed for chest tightness via nebulizer Tessalon Perles as needed for cough reflux diet continue fluticasone nasal spray in AM Singulair PM start Xolair w/wo allergy shots to treat her allergic asthma if worsens Referral to Allergy follow-up in 2-3 months Orders: Referrals Allergy & Immunology Referral J45.909 - Unspecified asthma, uncomplicated, L50.0 - Allergic urticaria Coding Level of Care Code Est Pt Level 4 (06054) Diagnoses Moderate persistent asthma without complication J45.40 Asthma complication type: uncomplicated Asthma persistence: persistent Asthma severity: moderate Chronic cough R05.3 Cough type: chronic Chronic allergic rhinitis J30.9 Allergic urticaria L50.0 Time Spent (min) 16
[2025-05-08 10:10] VITALS: BP 96/70; PULSE 96; O2SAT 97; BMI 23.8
--- OUTSIDE RECORDS SUMMARY | 2025-05-08 11:33 | XMS_ITS | Encounter Summary ---
Author Organization [facility] Address [address] [place] [id number] Phone Care Team Providers Care Inspector Screen Printing Name Role Phone Emperatriz Sosa MD Primary Care Provider [phone] Encounter Details Date Type Department Care Team (Late st Contact Info) Description 10/02/2013 Nurse Only [address] [address] Social History Tobacco Use Types Packs/Day Years [...] 2013 09:22 am Provider: Joyce Mensah LPN (Supervisor [employer]: Pramod Polanco MD; Industrial Education Teacher: Joyce Mensah LPN) Location: [facility]. ECTIVE: CC: She is here for [...] CAPTURE: Primary Diagnosis: V04.81 Flu Clinic Orders: [id number] Flu Vaccine (In-House) 53330 Immunization administration (includes percutaneous, intradermal, subcutaneous or intramuscular injec (In-House) documented in this encounter Plan of Treatment Not on file documented as of this encounter Visit Diagnoses Not on filedocumented in this encounter Care Teams Inspector Screen Printing Relationship Specialty Start Date End Date Emperatriz Sosa MD [address] [place] [id number] PCP - General Pediatrics 11/23/22 01/09/25 documented as of this encounter
== END 2025-05-08 10:40 | disposition home or self-care (01) ==
LOC: HO.HPS 10:04
PROVIDERS: Visit Provider Hospitalist
DX: J45.40 Moderate persistent asthma, uncomplicated (principal); R05.3 Chronic cough; J30.9 Allergic rhinitis, unspecified; L50.0 Allergic urticaria
CPT/HCPCS: 99214

== ENCOUNTER 2025-06-26 11:29 | Outpatient (AMB) | payer BC, SELFPAY ==
--- NOTE | 2025-06-26 11:35 | MHC.OFFVIS ---
Vital Signs 06/26/25 11:36 Height 4 ft 11 in Weight 119 lb 0.794 oz BMI 24.0 BP 98/68 Blood Pressure Location Lt brachial Position Sitting Pulse 95 Pulse Source Pulse Oximeter Pulse Oximetry (%) 98 Oxygen Delivery Method Room Air Intake Visit Reasons: Asthma Licensed Nurse Practitioner Required: No Allergies No Known Allergies Allergy (Verified 06/26/25 11:39) HPI Comments Details: The patient is a 24 year-old woman who was premature at 30 weeks gestation with a history of asthma. Apparently she was in usual state health until about couple years ago when her symptoms started getting worse again. Will recently she has been having significant cough. Moderate severity. Usually a coarse cough. Usually nonproductive although productive at times. Her cough tends to be throughout the day. She has a rescue inhaler which has been only partial improvement. She was then prescribed Wixela but she cannot get it due to prior approval. She was recently started on Symbicort. She has noticed some improvement on that. Currently she is expecting to have allergy testing in the next week or so. In the meantime she continues to have shortness of breath with activity. Also, feels some of back pain and difficulty expanding her lungs. In the office was so noted to have some wheezing on forced exhalation. We did try to perform spirometry although was difficult for her to do. It domonstrated FEF 25-75 of 60% consistent with small airways. As far as triggers the patient has a bird in her house. Denies any other pets. Not clear if there is any mold in the house. She did have a chest x-ray which appears in viewed by me demonstrating no acute disease. Also had sinus x-rays which were normal. 09/27/2022 the patient is here for a pulmonary follow-up visit. Overall the patient has been doing well. She is no longer using any maintenance inhalers. She continues on her Singulair. She states that her cough is significantly better. She has been being diligent about her hypoallergenic covers and prevent thing dust allergies. The patient does benefit from further allergy immunotherapy. At this point the patient is going to school and is hard for her to make the time to have allergy shots. Whenever the patient is able she can let me know and I will refer her back to Allergy in order to consider immunotherapy we did review her barium swallow. No evidence of any reflux or any dysmotility issues. The patient was premature And did have GI issues. Appeared to be better at this time. Otherwise the patient is without other complaints. She did receive a flu shot today. She will follow-up in a year's time with PFTs. If however she has any worsening symptoms prior to that she is always welcome to call the office for an earlier evaluation. 09/29/2023 the patient is here for a pulmonary follow-up visit. Overall she is doing fairly well. She continues with the ongoing nonproductive cough. Moderate severity. Sometimes she does not realizes more people around her. The patient has not been using any nasal therapies. She does continue with her allergy medicine. Also with her allergy avoidance. The patient does have significant postnasal drip. Significant chronic rhinitis with cobblestoning of her posterior pharynx. We did do the spirometry in the office. Her spirometry is perfectly normal which is reassuring. She does have a short-acting beta agonist but she rarely uses it. Will go ahead and start her nasal therapies to minimize her chronic rhinitis and hopefully her upper airway cough syndrome. Otherwise patient is without any other complaints. She will get a flu shot today. 02/02/2024 the patient is here for a sick visit. She has been having hard time now for about a month. She has been coughing more regularly. The cough tends to be nonproductive in nature. Initially started like a viral syndrome. Then the respiratory symptoms subsided except for the cough. Is been pretty persistent. She has coughing a lot at nighttime. She has been using her rescue inhaler with partial improvement of symptoms. She did go to an urgent care where she was evaluated. She was told that she had bronchitis and she was given a course of steroids. The steroids and not help much. She also has a nebulizer that she started using more regularly. On exam she does have expiratory wheezing and a pulse exhalation cough. We did provide her a breathing treatment in the office and she did have some wheezing afterwards. Explained to the patient that she still continues have an exacerbation of her asthma. And will go ahead and treat her for a lower respiratory infection in the meantime as she could have developed a postviral bacterial infection that may be precipitating the symptoms. The patient is not taking a maintenance inhaler this time. Believe that she will benefit from starting a Advair HFA inhaler twice a day until her symptoms improve. 04/10/2024 the patient is here for pulmonary follow-up visit. She has feeling a lot better. She did complete the antibiotics in the prednisone. The patient also was prescribed Advair but it was not covered apparently. Therefore she only has a rescue inhaler right now. She does not use the inhaler often typically does not times a week. She also has a nebulizer as well. The patient also stopped using her Singulair. Ext vital to go back on specially with her sensitive asthma in the fact that she has not on any maintenance therapy. Right now she is doing well and she does not have any wheezing on examination and she is breathing comfortably. Therefore, will hold off on inhaled cortical steroids at this time. She does have a cough the cough is hacky dry and is likely an upper airway cough syndrome. Carmen Ham worked well in the past. Will go ahead and provide her a script that she can use as needed for cough worsens. Indeed went back on the singular also help her cough as it will help with her allergic symptoms. 05/08/2025 the patient is here for a pulmonary follow-up visit. She has had multiple symptoms lately. She has been having more allergy symptoms including cough chronic rhinitis asthma and also rash. She started developing hives as well. She has tried corticosteroids in addition to antihistamines with no significant improvement of the symptoms. She has been very uncomfortable. The patient did have blood work done. In addition to that she has had allergy testing positive for known allergens. As far as her inhalers Advair was prescribed in addition to a BENTON that she uses as needed. I do believe that based on her allergic asthma and her chronic spontaneous uticaria she will be a good candidate for Xolair. In the meantime also placed a referral in for allergy. 06/26/2025 the patient is here for a pulmonary follow-up visit. Overall she is doing better. Seems like her uric areas settled some. She is no longer using the steroids. She continues on the antihistamines. She continues on her respiratory inhalers as prescribed. We did refer her to Allergy but they are requesting a primary care referral as well. Therefore she will do that July. In the meantime we a waiting for the approval of the Xolair. Since she is doing little better can wait to see if she progresses again prior to starting the Xolair. The patient will again follow-up with Allergy immunology and she will follow-up with us in the springtime. If she has any issues prior to that she will call for an earlier assessment. [facility] Medical History (Updated 05/08/25 @ 12:41 by Gregg Calle MD) Allergic urticaria Chronic allergic rhinitis Cough Dyspnea Belching Asthma Social History Patient Tobacco Use Status: Never used Tobacco Review of Systems Const Reports difficulty sleeping and Denies poor appetite Eyes Denies change in vision ENT Denies dysphagia, Reports nasal congestion and Reports post nasal drip Card Denies chest pain and Denies dyspnea Resp Reports cough, Denies dyspnea and Reports wheezing GI Denies belching, Denies dysphagia and Reports dyspepsia Musc Reports no additional complaints Skin/Breast Reports rash Neuro Reports no additional complaints Aller/Immun Reports urticaria and Reports wheezing Physical Exam Vital Signs: Last Vital Signs Pulse 95 06/26/25 11:36 BP 98/68 06/26/25 11:36 Pulse Ox 98 06/26/25 11:36 Oxygen Delivery Method Room Air 06/26/25 11:36 BMI result Body Mass Index 24.0 Const General: alert HEENT Throat: Yes postnasal drainage and Yes cobblestoning Neck Neck: Yes normal visual inspection, Yes full ROM and Yes no lymphadenopathy Chest Chest palpation & inspection: normal inspection of the chest Resp Effort & Inspection: normal respiratory effort Auscultation: diminished lung sounds Cardio Rate: regular rate Rhythm: regular rhythm Heart sounds: S1 normal heart sound present and S2 normal heart sound present GI Palpation (GI): Soft to palpation and nontender Auscultation: normal bowel sounds Skin Rashes: no rashes noted (hives scattered through out) Assessment & Plan Assessment & Plan (1) Asthma: Code(s): J45.909 - Unspecified asthma, uncomplicated Category: Medical Qualifiers: Asthma severity: moderate Asthma persistence: persistent Asthma complication type: uncomplicated Qualified Code(s): J45.40 - Moderate persistent asthma, uncomplicated (2) Cough: Code(s): R05.9 - Cough, unspecified Category: Medical Qualifiers: Cough type: chronic Qualified Code(s): R05.3 - Chronic cough (3) Chronic allergic rhinitis: Code(s): J30.9 - Allergic rhinitis, unspecified Category: Medical (4) Allergic urticaria: Code(s): L50.0 - Allergic urticaria Category: Medical Plan Advair HFA continue short-acting beta agonist as needed Xopenex as needed for chest tightness via nebulizer Tessalon Perles as needed for cough reflux diet continue fluticasone nasal spray in AM Singulair PM awaiting Xolair approval. Clinically better. We will reassess her symptoms further prior to starting the Biologic therapy Referral to Allergy follow-up in 8 months Medications: Discontinued famotidine (Pepcid) Discontinued Reason: None 40 mg PO BEDTIME 30 tabs 5RF Coding Level of Care Code Est Pt Level 4 (07182) Diagnoses Moderate persistent asthma without complication J45.40 Asthma severity: moderate Asthma persistence: persistent Asthma complication type: uncomplicated Chronic cough R05.3 Cough type: chronic Chronic allergic rhinitis J30.9 Allergic urticaria L50.0 Time Spent (min) 16
[2025-06-26 11:36] VITALS: BP 98/68; PULSE 95; O2SAT 98; BMI 24.0
--- OUTSIDE RECORDS SUMMARY | 2025-06-26 12:29 | XMS_ITS | Encounter Summary ---
Author Organization [facility] Address [address] [place] [phone] Phone Care Team Providers Care Firer Tunnel Kiln Name Role Phone Emperatriz Sosa MD Primary Care Provider [phone] Encounter Details Date Type Department Care Team (Late st Contact Info) Description 10/02/2013 Nurse Only [address] [address] Social History Tobacco Use Types Packs/Day Years [...] 2013 09:22 am Provider: Joyce Mensah LPN (Molder Setter: Pramod Polanco MD; Computer Systems Analyst: Joyce Mensah LPN) Location: [facility]. ECTIVE: CC: She is here for [...] CAPTURE: Primary Diagnosis: V04.81 Flu Clinic Orders: [id number] Flu Vaccine (In-House) [id number] Immunization administration (includes percutaneous, intradermal, subcutaneous or intramuscular injec (In-House) documented in this encounter Plan of Treatment Not on file documented as of this encounter Visit Diagnoses Not on filedocumented in this encounter Care Teams Firer Tunnel Kiln Relationship Specialty Start Date End Date Emperatriz Sosa MD [address] [place] [id number] PCP - General Pediatrics 11/23/22 01/09/25 documented as of this encounter
--- OUTSIDE RECORDS SUMMARY | 2025-06-26 12:29 | XMS_ITS | Encounter Summary ---
Author Organization [facility] Address [address] [place] [address] Phone Care Team Providers Care Start Up Specialist Name Role Phone Donato Wu MD Primary Care Provider Encounter Details Date Type Department Care Team (Late st Contact Info) Description 06/26/2019 Ancillary Orders [facility], X-Ray - [address] [place] [address] Nyla Nayak, EMMANUEL [address] [place] [address] Cough Social History Tobacco Use Types Packs/Day Years Used Date Smoking Tobacco: Never Assessed Comments Unknown Sex and Gender Information Value Date Recorded Sex Assigned at Not on file Legal Sex Female 8:45 PM EDT Gender Identity Not on file Sexual Orientation Not on file documented as of this encounter Plan of Treatment Upcoming Encounters Date Type Department Care Team (Late st Contact Info) Description 12/04/2025 11:30 AM EST Office Visit [facility] [address] [place] [address] Tracey Landa MD [address] [place] [address], [address] [place] [address] [email or web address] documented as of this encounter Results * XR CHEST PA AND LATERAL 2 VIEWS (06/26/2019 5:45 PM EDT) Anatomical Region Laterality Modality Chest Radiographic Yessenia ging 06/26/2019 6:21 PM EDT Impressions 06/26/2019 6:21 PM EDT normal chest. POS - [id number] Narrative 06/26/2019 6:21 PM EDT EXAM: XR CHEST PA AND LATERAL 2 VIEWS COMPARISON: None FINDINGS: Heart and pulmonary vascularity are normal. No infiltrates or effusions are seen. Mediastinum has a normal appearance. Bony structures are intact. Procedure Note Senthil Sloan MD - 06/26/2019 EXAM: XR CHEST PA AND LATERAL 2 VIEWS COMPARISON: None FINDINGS: Heart and pulmonary vascularity are normal. No infiltrates or effusionsare seen. Mediastinum has a normal appearance. Bony structures areintact. IMPRESSION: normal chest. POS - [id number] Nyla Nayak REGULATORY ASSISTANT IMG XR CHEST Final Resul t documented in this encounter Visit Diagnoses Diagnosis Cough Cough documented in this encounter Care Teams Start Up Specialist Relationship Specialty Start Date End Date Donato Wu MD [address] [place] [address] [address] [place] [address] PCP - General Pediatrics 06/26/19 documented as of this encounter Additional Source Comments The information contained in this document represents components of the legal health record. It is not the complete legal health record.[facility]
== END 2025-06-26 12:07 | disposition home or self-care (01) ==
LOC: HO.HPS 11:29
PROVIDERS: Visit Provider Hospitalist
DX: J45.40 Moderate persistent asthma, uncomplicated (principal); R05.3 Chronic cough; J30.9 Allergic rhinitis, unspecified; L50.0 Allergic urticaria
CPT/HCPCS: 99214

== ENCOUNTER 2025-07-22 09:54 | Outpatient (AMB) | payer BC, SELFPAY ==
--- NOTE | 2025-07-22 09:59 | MHC.PC.OV ---
Vital Signs 07/22/25 10:00 Height 4 ft 11 in Weight 121 lb 4 oz BMI 24.5 BP 108/62 Blood Pressure Location Lt brachial Position Sitting Pulse 94 Pulse Source Auscultation Intake Visit Reasons: Establish care Traffic Survey Technician Required: No Accompanied by: Self / Same As Patient Allergies No Known Allergies Allergy (Verified 07/22/25 10:24) Medication List - Last Reconciled 07/22/25 by Arianna Navas PA-C albuterol sulfate 90 mcg/actuation 2 inhalations inhalation Q6H 30 days azelastine 2 sprays intranasal BID 30 days fluticasone propionate 50 mcg/actuation 2 sprays intranasal DAILY 30 days levalbuterol HCl 1.25 mg (3 mL) inhalation BID PRN montelukast 10 mg PO DAILY nebulizers As directed Tobacco use date assessed: 07/22/25 Dental Screening Dental Screen Date: 07/22/25 Did you have a dental visit in the last 12 months?: No Did you have a dental problem in the last 6 months where you did not have access to dental care?: No Was dental information given to patient?: Patient has dentist HPI Establish care HPI Details 24 year old female coming to the office for the first time. In review of the notes, patient was seen by pulmonology 06/2025 continued on BENTON and Xopenex as needed, Singulair and awaiting Xolair approval. She was also referred to allergy and follow up in 8 months. Presenting with asthma, a persistent rash, and irregular menstrual cycles. The condition is well-managed with infrequent use of a rescue inhaler, primarily during illness. The patient is under the care of a digester hand and is considering Xolair treatment. Rash Characterized by red spots, primarily on the arms and legs, the rash has been persistent and varies in intensity. The patient has been referred to an real estate account executive for further evaluation. Rash is not currently present. The patient experiences irregular cycles, with periods occurring sometimes monthly and lasting between 4 to 7 days. She denies heavy or painful periods and has not been on control. The patient is overdue for a Pap smear and has been referred to a legal billing analyst. She has no history of pregnancies and her depression and anxiety screenings are negative. Vaccines: UTD but awaiting pedi records for [facility] Medical History Allergic urticaria Chronic allergic rhinitis Cough Dyspnea Belching Asthma Social History Household Members: Family Both parents involved: No Caregiver staying overnight: No Housing: House Are you a primary before and after school daycare worker to a significant other at home: No Do you presently have visiting nurse or other home services: No Alcohol intake: never Patient Tobacco Use Status: Never used Tobacco e-Cigarette/Vaping Use: Never Used service: No Current occupational status: employed Current occupation: [employer] Hearing needs: No Vision needs: No Female Reproductive History Menstrual Duration of menses: 3-5 days control method: none Total pregnancies: 0 History of abnormal pap smear: No Questionnaire PHQ-9 Over the last 2 weeks, how often have you been bothered by any of the following problems? 1. Little interest or pleasure in doing things: not at all 2. Feeling down, depressed, or hopeless: not at all 3. Trouble falling or staying asleep, or sleeping too much: not at all 4. Feeling tired or having little energy: not at all 5. Poor appetite or overeating: not at all 6. Feeling bad about yourself - or that you are a failure or have let yourself or your family down: not at all 7. Trouble concentrating on things, such as reading the newspaper or watching television: not at all 8. Moving or speaking so slowly that other people could have noticed. Or the opposite - being so fidgety or restless that you have been moving around a lot more than usual: not at all 9. Thoughts that you would be better off or of hurting yourself in some way: not at all Total score: 0 Depression Screening Interpretation: Negative Depression Screening Done: Yes 34611 - PHQ-9 Billing: Yes Source: Developed by Drs. Bishnu Knox, Rebecca Johnson, Gus Nicolas and colleagues, with an educational joseph from [employer]. Thrive Questionnaire Date Thrive assessed: 07/22/25 I am a: Patient What is your living situation today?: I have a steady place to live Within the past 12 months, did the food you bought not last and you didn't have the money to get more?: Never true Within the past 12 months, did you worry whether your food would run out before you got money to buy more?: Never true Do you have trouble paying for medicines?: No Do you have trouble getting transportation to medical appointments?: No Do you have trouble paying your heating and electricity bill?: No Do you have trouble taking care of your child, family member or friend?: No Do you have trouble with day-to-day activities such as bathing, preparing meals, shopping, managing finances, etc.?: No Are you currently unemployed and looking for a job?: No Are you interested in more education?: No Please select the resources that you would like help with: None Currently or been in a relationship where the following occur: No concerns reported THRIVE Score: 0 AUDIT C Alcohol Use Questionnaire (AUDIT-C) 1. How often do you have a drink containing alcohol?: Monthly or less 2. How many drinks containing alcohol do you have on a typical day when you are drinking?: 1 or 2 3. How often do you have six or more drinks on one occasion?: Never Total Score: 1 Score Reviewed/Action Taken: No SHIRAZ-7 AMB Questionnaire SHIRAZ-7 Date SHIRAZ - 7 assessed: 07/22/25 Feeling nervous, anxious, or on edge: 0 = Not at all Not being able to stop or control worryin = Not at all Worrying too much about different things: 0 = Not at all Trouble relaxin = Not at all Being so restless that it is hard to sit still: 0 = Not at all Becoming easily annoyed or irritable: 0 = Not at all Feeling afraid as if something awful might happen: 0 = Not at all Total SHIRAZ-7 score (0-4 normal; 5-9 mild; 10-14 moderate; 15-21 severe): 0 Source: Developed by Drs. Bishnu Knox, Rebecca Johnson, Gus Nicolas and colleagues, with an educational joseph from [employer]. SHIRAZ-7 Assessment Billing SHIRAZ-7 Assessment Tool: SHIRAZ-7 Assessment 04238 ACT Questionnaire In the past 4 weeks, how much of the time did your asthma keep you from getting as much done at work, school or at home?: All of the time During the past 4 weeks, how often have you had shortness of breath?: Not at all During the past 4 weeks, how often did your asthma symptoms wake you up at night or earlier than usual in the morning?: Not at all During the past 4 weeks, how often have you had to use your rescue inhaler or nebulizer medication?: 1-2 times a week How would you rate your asthma control during the past 4 weeks?: Well controlled Score: 17 Review of Systems Const Denies body aches, Denies chills, Denies fever(s), Denies headache(s) and Denies poor appetite Eyes Reports no additional complaints ENT Denies dysphagia, Denies dizziness, Denies headache(s) and Denies odynophagia Card Denies chest pain, Denies syncope, Denies edema, Denies irregular heart rhythm, Denies lightheadedness and Denies dyspnea Resp Denies cough and Denies dyspnea GI Denies abdominal pain, Denies constipation, Denies dysphagia, Denies diarrhea, Denies nausea, Denies odynophagia and Denies vomiting Reports no additional complaints Musc Reports no additional complaints and Denies abnormal gait Skin/Breast Reports system reviewed and no additional complaints, except as documented Neuro Denies abnormal gait, Denies dizziness, Denies syncope and Denies headache(s) Psych Reports no additional complaints Physical exam (Primary Care) Vital Signs: Last Vital Signs BP 108/62 07/22/25 10:00 BMI result Body Mass Index 24.5 Tobacco/Smoking Status: Tobacco use Status Tobacco use date assessed 07/22/25 07/22/25 10:12 Patient Tobacco Use Status Never used Tobacco 07/22/25 10:12 e-Cigarette/Vaping Use Never Used 07/22/25 10:12 PHQ-9: PHQ-9 Score PHQ-9: Total score 0 07/22/25 10:26 Depression Screening Interpretation: Negative Thrive Assessment: Date of Thrive Assessment Date Thrive assessed 07/22/25 07/22/25 10:12 Currently or been in a relationship where the following occur: No concerns reported Const General: cooperative, healthy appearing, comfortable and no acute distress Orientation/consciousness: patient oriented x3 HENMT Head: Yes normocephalic Ears: hearing grossly normal bilaterally General nose exam: Normal external nose present Face and sinus: Yes normal facial exam and Yes sinuses nontender Mouth: Normal oral and palatal mucosa present and tongue normal Throat: Yes posterior oropharynx normal Eyes General: appearance normal, both eyes and all related structures Conjunctivae: conjunctivae normal Pupils: Equal, round and reactive pupils present EOM: EOMs intact bilaterally and No Nystagmus present Neck Neck: Yes full ROM and Yes no lymphadenopathy Chest Chest palpation & inspection: normal inspection of the chest Resp Effort & Inspection: normal respiratory effort Auscultation: clear to auscultation bilaterally, no crackles, no rales, no rhonchi and no wheezes Cardio Rate: regular rate Rhythm: regular rhythm Peripheral pulses: radial pulses present and dorsalis pedis present GI Inspection: Yes normal to inspection and No Abdominal wall edema Palpation (GI): Soft to palpation, not firm and nontender Auscultation: normal bowel sounds Rectal Exam - Female: deferred General: Yes no CVA tenderness Back/Spine/Pelvis Back: no CVA tenderness Skin General skin exam: no rashes or lesions noted Neuro General: patient oriented x3 Cranial nerves: Yes Equal, round and reactive pupils present, Yes Midline tongue present, Yes Ability to bilaterally elevate shoulders present and No Nystagmus present Gait exam (Neuro): Normal gait present Extrem General: Yes normal to inspection, Yes full ROM and No edema Psych Speech and movement: Normal speech and movement present Affect: normal affect Attitude: cooperative Insight: Good insight present (Psych) Judgement: Good judgement present (Psych) Coding Level of Care Code New Pt Prev Care 18-39yr([id number] Diagnoses Annual physical exam Z00.00 Moderate persistent asthma without complication J45.40 Asthma complication type: uncomplicated Asthma persistence: persistent Asthma severity: moderate Chronic allergic rhinitis J30.9 Allergic urticaria L50.0 Irregular menses N92.6 Additional Codes SHIRAZ-7 Assessment Billing - SHIRAZ-7 Assessment Tool: SHIRAZ-7 Assessment 77389 ([id number]) PHQ-9 - 24382 - PHQ-9 Billing: Yes ([id number]) Assessment & Plan Assessment & Plan (1) Annual physical exam: Code(s): Z00.00 - Encounter for general adult medical examination without abnormal findings Category: Medical Plan: Patient is overdue for Pap smear and referral has been placed to gynecology today. She believes she is up-to-date on all recommended vaccinations for her age and plan to obtain pediatric records further evaluation. I did order for updated blood work and plan to follow up yearly or sooner as needed. (2) Asthma: Code(s): J45.909 - Unspecified asthma, uncomplicated Category: Medical Qualifiers: Asthma complication type: uncomplicated Asthma persistence: persistent Asthma severity: moderate Qualified Code(s): J45.40 - Moderate persistent asthma, uncomplicated Plan: The patient is advised to continue current asthma management with infrequent use of a rescue inhaler. Consideration of Xolair treatment is ongoing, pending further evaluation by the digester hand. (3) Chronic allergic rhinitis: Code(s): J30.9 - Allergic rhinitis, unspecified Category: Medical Plan: Continue on current medication regimen (4) Allergic urticaria: Code(s): L50.0 - Allergic urticaria Category: Medical Plan: The patient is referred to an real estate account executive for further evaluation of the persistent rash. Recommendations include avoiding scented or dyed products and using sensitive skin products to minimize irritation. (5) Irregular menses: Code(s): N92.6 - Irregular menstruation, unspecified Category: Medical Plan: The patient is referred to a legal billing analyst for evaluation of irregular menstrual cycles. Discussion of potential benefits of control for cycle regulation is anticipated during the gynecological consultation. Plan During the visit, we discussed the management of asthma, including the potential use of Xolair. The patient was advised to continue current asthma management and to follow up with the digester hand. For the persistent rash, a referral to an real estate account executive was made, and recommendations were given to avoid scented products. The patient was also referred to a legal billing analyst for evaluation of irregular menstrual cycles, with a discussion on the potential use of control for regulation. Follow-up appointments and blood work were arranged, and the patient was instructed to contact the office if any concerns arise before the next scheduled visit. This note was constructed using voice recognition software. While every effort has been made to ensure accuracy and atmospheric drier tender, still areas may have been included sometimes these areas may affect the content or meeting of the given symptoms. Total time spent caring for the patient today was 30 minutes. This includes time spent before the visit reviewing the chart, time spent during the visit, and time spent after the visit and documentation. Patient was informed and verbally consented to the use of an ambient scribe for clinic note documentation during this visit. Orders: Orders Comprehensive Met. Panel Today J30.9 - Allergic rhinitis, unspecified, Z00.00 - Encounter for general adult medical examination without abnormal findings TSH reflex Free T4 Today N92.6 - Irregular menstruation, unspecified, Z13.29 - Encounter for screening for other suspected endocrine disorder Vitamin B12 and Folate Today N92.6 - Irregular menstruation, unspecified, Z13.21 - Encounter for screening for nutritional disorder Complete Blood Count Auto Diff Today N92.6 - Irregular menstruation, unspecified, Z00.00 - Encounter for general adult medical examination without abnormal findings Vitamin D 25-OH Total Today N92.6 - Irregular menstruation, unspecified, Z13.21 - Encounter for screening for nutritional disorder Referrals Allergy & Immunology Referral J30.9 - Allergic rhinitis, unspecified, L50.0 - Allergic urticaria ASSISTANT FEDERAL PUBLIC DEFENDER Referral N92.6 - Irregular menstruation, unspecified, Z12.4 - Encounter for screening for malignant neoplasm of cervix
[2025-07-22 10:00] VITALS: BP 108/62; PULSE 94; BMI 24.5
--- OUTSIDE RECORDS SUMMARY | 2025-07-22 11:33 | XMS_ITS | Encounter Summary ---
Author Organization [facility] Address [address] [place] [address] Phone Care Team Providers Care Inventory Control Planner Name Role Phone Emperatriz Sosa MD Primary Care Provider [phone] Encounter Details Date Type Department Care Team (Late st Contact Info) Description 08/30/2010 Nurse Only [address] [address] Social History Tobacco Use Types Packs/Day Years [...] 2010 01:01 pm Provider: Catie Ken LPN (Branding Machine Tender: Samia Castellon MD) Location: [facility]. ECTIVE: CC: She is here for [...] CAPTURE: Primary Diagnosis: V04.81 Flu Clinic Orders: [id number] Influenza virus vaccine, split virus, preservative free, > 3 years, for intramuscular use [id number] Immunization administration (includes percutaneous, intradermal, subcutaneous or intramuscular injec documented in this encounter Plan of Treatment Not on file documented as of this encounter Visit Diagnoses Not on filedocumented in this encounter Care Teams Inventory Control Planner Relationship Specialty Start Date End Date Emperatriz Sosa MD [address] [place] [address] PCP - General Pediatrics 11/23/22 01/09/25 documented as of this encounter
--- OUTSIDE RECORDS SUMMARY | 2025-07-22 11:33 | XMS_ITS | Encounter Summary ---
Author Organization [facility] Address [address] [place] [address] Phone Care Team Providers Care Home Health Travel Pt Name Role Phone Donato Wu MD Primary Care Provider Encounter Details Date Type Department Care Team (Late st Contact Info) Description 06/26/2019 Ancillary Orders [facility], X-Ray - [address] [place] [address] Nyla Nayak, EMMANUEL [address] [place] [address] Cough Social History Tobacco Use Types Packs/Day [...] Description 12/04/2025 11:30 AM EST Office Visit [facility] Medicine [address] [place] [address] Tracey Landa MD [address] [place] [address], [address] [place] [address] [email or web address] documented as of this encounter Results * XR CHEST PA AND LATERAL 2 VIEWS (06/26/2019 5:45 PM EDT) Anatomical Region Laterality Modality Chest Radiographic Yessenia ging 06/26/2019 6:21 PM EDT Impressions 06/26/2019 6:21 PM EDT normal chest. POS - [id number] Narrative 06/26/2019 6:21 PM EDT EXAM: XR [...] structures areintact. IMPRESSION: normal chest. POS - [id number] Nyla Nayak STORE PROTECTION SPECIALIST IMG XR CHEST Final Resul t documented in this encounter Visit Diagnoses Diagnosis Cough Cough documented in this encounter Care Teams Home Health Travel Pt Relationship Specialty Start Date End Date Donato Wu MD [address] [place] [address] [address] [place] [address] PCP - General Pediatrics 06/26/19 documented as of this encounter Additional Source Comments The information contained in this document represents components of the legal health record. It is not the complete legal health record.[facility]
--- OUTSIDE RECORDS SUMMARY | 2025-07-22 11:33 | XMS_ITS | Encounter Summary ---
Author Organization [facility] Address [address] [place] [address] Phone Care Team Providers Care Meat Carrier Name Role Phone Emperatriz Sosa MD Primary Care Provider [phone] Reason for Visit * Reason Onset Date Comments Med Refill 12/30/2021 Encounter Details Date Type Department Care Team (Late st Contact Info) Description 12/30/2021 Refill [facility], [address] [place] [address] Donato Wu MD Cough due to bronchospasm [...] Mauricio [place] - 12/31/2021 9:41 AM EST [facility] 12/28/21. rx pended for pcp review documented in this encounter Plan of Treatment Not on file documented as of this encounter Visit Diagnoses Diagnosis Cough due to bronchospasm documented in this encounter Care Teams Meat Carrier Relationship Specialty Start Date End Date Emperatriz Sosa MD [facility] [address] [place] [address] PCP - General Pediatrics 11/23/22 01/09/25 documented as of this encounter
--- OUTSIDE RECORDS SUMMARY | 2025-07-22 11:33 | XMS_ITS | Clinical Summary ---
Author Organization [facility] Address [address] [place] [address] [place] [address] Phone Care Team Providers Care Cupola Liner Helper Name Role Phone Donato Wu MD Primary Care Provider Social History Tobacco Use Types Packs/Day Years Used Date Smoking Tobacco: Never Assessed Education Answer Date Recorded Are you interested in more education? Not on farooq e 02/15/2025 Are you concerned about learning? Not on file 02/15/2025 No 02/15/2025 No 02/15/2025 Digital Access Answer Date Recorded No 02/15/2025 No 02/15/2025 Reliable internet access at home? Not on file 02/15/2025 Device with a working camera? Not on file Comments Unknown Sex and Gender Information Value Date Recorded Sex Assigned at Not on file Legal Sex Female 8:45 PM EDT Gender Identity Not on file Sexual Orientation Not on file Plan of Treatment Upcoming Encounters Date Type Department Care Team (Late st Contact Info) Description 12/04/2025 11:30 AM EST Office Visit [facility] Medicine [address] [place] [address] Tracey Landa MD [address] [facility], [address] [place], [place] [id number] [email or web address] Health Maintenance Due Date Last Done Comments DEPRESSION SCREENING 2013 SMOKING Hx and SMOKELESS TOBACCO SCREENING 2014 HPV VACCINES (1 - 3-dose series) 2016 CHLAMYDIA SCREENING 2017 MENINGOCOCCAL VACCINES (B) (1 of 2 - Standard) 2017 HEPATITIS C SCREENING 2019 HIV ONE-TIME SCREENING (18-65 YEARS) 2019 PAP SMEAR 2022 Adult Td,Tdap Booster 02/22/2024 02/21/2014 INFLUENZA VACCINE (#1) 2025 , 09/06/2019, 12/07/2018, Additional history exists COVID-19 VACCINE ( - 2024- season) 2025 02/25/2021 HIB VACCINES Completed 02/12/2003, 05/14, 03/29/2002, Additional history exists PNEUMOCOCCAL VACCINES (0-49 years) Aged Out 05/20/2003, 05/24/2002, 03/29/2002, Additional history exists No longer eligible based on patient's age to complete this topic MENINGOCOCCAL VACCINES (ACWY) Completed 12/14/2019, 02/21/2014 HEPATITIS A VACCINES Aged Out No long er eligible based on patient's age to complete this topic Medical Devices Not on file Insurance Reinaldo CH[facility]LEY [place] [id number] [facility] NETWORK O Jyoti DASH [place] [employer] NETWORK HMO Jyoti DASH [place] [employer] [facility] NETWORK O Jyoti DASH [place] [employer] NETWORK O Jyoti DASH [place] [employer] NETWORK HMO Jyoti DASH [place] [employer] NETWORK HMO Jyoti DASH [place] [employer] NETWORK HMO Jyoti DASH [place] [employer] NETWORK HMO Care Teams Cupola Liner Helper Relationship Specialty Start Date End Date Donato Wu MD [address] [place] [address] [address] [place] [address] PCP - General Pediatrics 06/26/19 Additional Source Comments The information contained in this document represents components of the legal health record. It is not the complete legal health record.[facility]
--- OUTSIDE RECORDS SUMMARY | 2025-07-22 11:33 | XMS_ITS | Encounter Summary ---
Author Organization [facility] Address [address] [place] [address] Phone Care Team Providers Care Student Nurse Name Role Phone Emperatriz Sosa MD Primary Care Provider [phone] Encounter Details Date Type Department Care Team (Late st Contact Info) Description 10/02/2013 Nurse Only [address] [address] Social History Tobacco Use Types Packs/Day Years [...] 2013 09:22 am Provider: Joyce Mensah LPN (Steam Conditioner Operator: Pramod Polanco MD; Trial Lawyer: Joyce Mensah LPN) Location: [facility]. ECTIVE: CC: She is here for [...] CAPTURE: Primary Diagnosis: V04.81 Flu Clinic Orders: [id number] Flu Vaccine (In-House) [id number] Immunization administration (includes percutaneous, intradermal, subcutaneous or intramuscular injec (In-House) documented in this encounter Plan of Treatment Not on file documented as of this encounter Visit Diagnoses Not on filedocumented in this encounter Care Teams Student Nurse Relationship Specialty Start Date End Date Emperatriz Sosa MD [address] [place] [address] PCP - General Pediatrics 11/23/22 01/09/25 documented as of this encounter
--- OUTSIDE RECORDS SUMMARY | 2025-07-22 11:33 | XMS_ITS | Encounter Summary ---
Author Organization [facility] Address [address] [place] [address] Phone Care Team Providers Care Litigation Assistant Name Role Phone Emperatriz Sosa MD Primary Care Provider [phone] Encounter Details Date Type Department Care Team (Late st Contact Info) Description 09/06/2011 Nurse Only [address] [address] Social History Tobacco Use Types Packs/Day Years [...] 2011 05:52 pm Provider: Jesenia Block RN (Dictating Machine Mechanic: Nyla Cottrell MD; Sponge Clipper: Jesenia Block RN) Location: [facility]. ECTIVE: CC: She is here for [...] CAPTURE: Primary Diagnosis: V04.81 Flu Clinic Orders: [id number] Influenza virus vaccine, split virus, preservative free, > 3 years, for intramuscular use [id number] Immunization administration (includes percutaneous, intradermal, subcutaneous or intramuscular injec documented in this encounter Plan of Treatment Not on file documented as of this encounter Visit Diagnoses Not on filedocumented in this encounter Care Teams Litigation Assistant Relationship Specialty Start Date End Date Emperatriz Sosa MD [address] [place] [address] PCP - General Pediatrics 11/23/22 01/09/25 documented as of this encounter
--- OUTSIDE RECORDS SUMMARY | 2025-07-22 11:33 | XMS_ITS | Encounter Summary ---
Author Organization [facility] Address [address] [place] [address] Phone Care Team Providers Care Feeder Driver Name Role Phone Emperatriz Sosa MD Primary Care Provider [phone] Encounter Details Date Type Department Care Team (Late st Contact Info) Description 09/14/2012 Nurse Only [address] [address] Social History Tobacco Use Types Packs/Day Years [...] 2012 04:05 pm Provider: Ni Weaver CMA (Mobile Lab Technician: Nyla Cottrell MD; Digital Forensics Examiner: Ni Weaver CMA) Location: [place] [facility]. ECTIVE: CC: She is here for the [...] CAPTURE: Primary Diagnosis: V04.81 Flu Clinic Orders: [id number] Influenza virus vaccine, split virus, preservative free, > 3 years, for intramuscular use (In-House) 09502 Immunization administration (includes percutaneous, intradermal, subcutaneous or intramuscular injec (In-House) documented in this encounter Plan of Treatment Not on file documented as of this encounter Visit Diagnoses Not on filedocumented in this encounter Care Teams Feeder Driver Relationship Specialty Start Date End Date Emperatriz Sosa MD [address] [place] [address] PCP - General Pediatrics 11/23/22 01/09/25 documented as of this encounter
--- OUTSIDE RECORDS SUMMARY | 2025-07-22 11:34 | XMS_ITS | Clinical Summary ---
Author Organization [facility] Address [address] [place] [address] Phone Care Team Providers Care Supervisor Lump Room Name Role Phone Unavailable Primary Care Provider [...] followed by Pulmonology ( Dr Calle at [facility] [place])--see consult notes--most recent follow-up on 02/18/2022. Currently [...] asthma The recent covid testing was positive Recommend standard infectious precautions (covering cough, handwashing, social distancing) Self-isolate for at least 5 days since symptoms first appeared AND at least 24 hour of being fever-free with improved signs/symptoms. Wear a mask around others for 10 days Increase fluid intake Acetaminophen or ibuprofen for fever relief as needed Avoid over the counter cough and cold medications. Call if no improvement in 1 week Seek care in ED for worsening cough, [...] 94 01/26/2024 3:05 PM EDT Temperature 36.9 C (98.5 F) 01/26/2024 3:05 PM EDT Respiratory Rate 18 01/26/2024 3:05 PM EDT [...] - Bexsero SCDM 2-dose series) 07/02/2024 01/02/2024 Influenza Vaccines (#1) 2025 12/06/19 25, 09/29/2023, 09/27/2022, Additional history exists Hepatitis B Vaccines Completed 07/31/2002, 05/24/2002, 2001 HIB Vaccines Completed 02/12/2003, 05/14, 03/29/2002, Additional history exists Pneumococcal Vaccine Completed 05/20/2003, 05/24/2002, 03/29/2002, Additional history exists IPV Vaccines Completed 11/12/2005, 11/14, 03/29/2002, Additional history exists MMR Vaccines Completed 11/09/2006, 02/12/2003 Varicella Vaccines Completed 11/09/2006, 11/30/2002 Meningococcal Vaccine Completed 12/14/2019, 014 COVID-19 Vaccine Completed 12/06/2024, 02/2022, 03/18/2021, Additional history exists Hepatitis A Vaccines Aged Out No long er eligible based on patient's age to complete this topic Insurance [facility]
== END 2025-07-22 10:50 | disposition home or self-care (01) ==
LOC: HO.HMCH 09:55
DX: Z00.00 Encounter for general adult medical examination without abnormal findings (principal); J45.40 Moderate persistent asthma, uncomplicated; J30.9 Allergic rhinitis, unspecified; L50.0 Allergic urticaria; N92.6 Irregular menstruation, unspecified

== ENCOUNTER → 2025-07-22 09:54 | Outpatient (BNVA) | payer BC, SELFPAY | DX: Z00.00 Encounter for general adult medical examination without abnormal findings (principal); R21 Rash and other nonspecific skin eruption; N92.6 Irregular menstruation, unspecified; J45.40 Moderate persistent asthma, uncomplicated; J30.9 Allergic rhinitis, unspecified; L50.0 Allergic urticaria | CPT/HCPCS: 96127; 96160 ==

== ENCOUNTER 2025-07-26 15:12 | Outpatient (REF) | payer BC, SELFPAY ==
[2025-07-26 15:23] LABS: MANUAL DIFF FLAG NO
[2025-07-26 15:56] LABS: Hematocrit 39.4 % (37.0-47.0); Hemoglobin 12.8 g/dl (12.0-16.0); Imm Gran Abs Auto 0.03 X10*3/uL (0.00-0.03); Imm Gran Pct Auto 0.3 % (0.0-0.4); Lymphocytes Absolute Auto 2.6 X10*3/uL (1.2-4.9); Mean Corpuscular HGB Conc 32.5 g/dl (31.0-35.0); Mean Corpuscular Hemoglobin 29.0 pg (27.0-33.0); Mean Corpuscular Volume 89.1 fL (80.0-98.0); NRBC Abs Auto 0.000 X10*3/uL (0.0-0.012); NRBC Pct Auto 0.0 /100WBC (0.0-0.2); Platelet Count 326 X10*3/uL (160-400); Red Blood Count 4.42 X10*6/uL (4.20-5.50); White Blood Count 10.2 X10*3/uL (4.8-10.8)
[2025-07-26 16:50] LABS: Alanine Aminotransferase 12 U/L (0-31); Albumin Level 4.7 g/dL (3.5-5.0); Alkaline Phosphatase 57 U/L (39-117); Anion Gap 10 (12-20); Aspartate Amino Transferase 19 U/L (5-31); Blood Urea Nitrogen 18 mg/dL (9-16); Calcium 9.3 mg/dL (8.4-10.2); Carbon Dioxide 26 mmol/L (22-29); Chloride 108 mmol/L (96-108); Estimated Glomerular Filt Rate > 60; Potassium 4.3 mmol/L (3.3-5.1); Sodium 140 mmol/L (135-145); Total Protein 7.7 g/dL (6.5-8.0)
[2025-07-26 17:14] LABS: Folate 14.6 ng/mL (> or = 4.0); Vitamin B12 501 pg/mL (200-900)
--- OUTSIDE RECORDS SUMMARY | 2025-07-26 17:37 | XMS_ITS | Encounter Summary ---
Author Organization [facility] Address [address] [place] [address] Phone Care Team Providers Care Construction Economist Name Role Phone Emperatriz Sosa MD Primary Care Provider [phone] Encounter Details Date Type Department Care Team (Late st Contact Info) Description 09/06/2011 Nurse Only [address] [address] Social History Tobacco Use Types Packs/Day Years [...] 2011 05:52 pm Provider: Jesenia Block RN (Stock Roller: Nyla Cottrell MD; It Compliance Analyst: Jesenia Block RN) Location: [facility]. ECTIVE: CC: She is here for [...] CAPTURE: Primary Diagnosis: V04.81 Flu Clinic Orders: [id number] Influenza virus vaccine, split virus, preservative free, > 3 years, for intramuscular use [id number] Immunization administration (includes percutaneous, intradermal, subcutaneous or intramuscular injec documented in this encounter Plan of Treatment Not on file documented as of this encounter Visit Diagnoses Not on filedocumented in this encounter Care Teams Construction Economist Relationship Specialty Start Date End Date Emperatriz Sosa MD [address] [place] [address] PCP - General Pediatrics 11/23/22 01/09/25 documented as of this encounter
--- OUTSIDE RECORDS SUMMARY | 2025-07-26 17:37 | XMS_ITS | Clinical Summary ---
Author Organization [facility] Address [address] [place] [address] Phone Care Team Providers Care Candy Polisher Name Role Phone Unavailable Primary Care Provider [...] followed by Pulmonology ( Dr Calle at [facility] [place])--see consult notes--most recent follow-up on 02/18/2022. Currently [...] patient's age to complete this topic Insurance [facility] HMO
--- OUTSIDE RECORDS SUMMARY | 2025-07-26 17:37 | XMS_ITS | Encounter Summary ---
Author Organization [facility] Address [address] [place] [address] Phone Care Team Providers Care Assistant Warehouse Manager Name Role Phone Emperatriz Sosa MD Primary Care Provider [phone] Reason for Visit * Reason Onset Date Comments Med Refill 12/30/2021 Encounter Details Date Type Department Care Team (Late st Contact Info) Description 12/30/2021 Refill [facility], [address] [place] [address] Donato Wu MD Cough due to bronchospasm [...] Mauricio [place] - 12/31/2021 9:41 AM EST [facility] 12/28/21. rx pended for pcp review documented in this encounter Plan of Treatment Not on file documented as of this encounter Visit Diagnoses Diagnosis Cough due to bronchospasm documented in this encounter Care Teams Assistant Warehouse Manager Relationship Specialty Start Date End Date Emperatriz Sosa MD A [facility] [address] [place] [address] PCP - General Pediatrics 11/23/22 01/09/25 documented as of this encounter
--- OUTSIDE RECORDS SUMMARY | 2025-07-26 17:37 | XMS_ITS | Encounter Summary ---
Author Organization [facility] Address [address] [place] [address] Phone Care Team Providers Care Erp Business Analyst Name Role Phone Emperatriz Sosa MD Primary Care Provider [phone] Encounter Details Date Type Department Care Team (Late st Contact Info) Description 08/30/2010 Nurse Only [address] [address] Social History Tobacco Use Types Packs/Day Years [...] 2010 01:01 pm Provider: Catie Ken LPN (Quality Intern: Samia Castellon MD) Location: [facility]. ECTIVE: CC: She is here for the [...] CAPTURE: Primary Diagnosis: V04.81 Flu Clinic Orders: [id number] Influenza virus vaccine, split virus, preservative free, > 3 years, for intramuscular use [id number] Immunization administration (includes percutaneous, intradermal, subcutaneous or intramuscular injec documented in this encounter Plan of Treatment Not on file documented as of this encounter Visit Diagnoses Not on filedocumented in this encounter Care Teams Erp Business Analyst Relationship Specialty Start Date End Date Emperatriz Sosa MD [address] [place] [address] PCP - General Pediatrics 11/23/22 01/09/25 documented as of this encounter
--- OUTSIDE RECORDS SUMMARY | 2025-07-26 17:37 | XMS_ITS | Encounter Summary ---
Author Organization [facility] Address [address] [facility] [address] [place] [address] Phone Care Team Providers Care Teacher Asst Name Role Phone Donato Wu MD Primary Care Provider Encounter Details Date Type Department Care Team (Late st Contact Info) Description 06/26/2019 Ancillary Orders [facility], X-Ray - [address] [place] [address] Nyla Nayak, EMMANUEL [address] [place] [address] Cough Social History Tobacco Use Types Packs/Day [...] Description 12/04/2025 11:30 AM EST Office Visit [facility] Medicine [address] [place] [address] Tracey Landa MD [address] [place] [address], [address] [place] [address] [email or web address] documented as of this encounter Results * XR CHEST PA AND LATERAL 2 VIEWS (06/26/2019 5:45 PM EDT) Anatomical Region Laterality Modality Chest Radiographic Yessenia ging 06/26/2019 6:21 PM EDT Impressions 06/26/2019 6:21 PM EDT normal chest. POS - [id number] Narrative 06/26/2019 6:21 PM EDT EXAM: XR [...] structures areintact. IMPRESSION: normal chest. POS - [id number] Nyla Nayak MACHINIST SET UP IMG XR CHEST Final Resul t documented in this encounter Visit Diagnoses Diagnosis Cough Cough documented in this encounter Care Teams Teacher Asst Relationship Specialty Start Date End Date Donato Wu MD [address] [place] [address] [address] [place] [address] PCP - General Pediatrics 06/26/19 documented as of this encounter Additional Source Comments The information contained in this document represents components of the legal health record. It is not the complete legal health record.[facility]
--- OUTSIDE RECORDS SUMMARY | 2025-07-26 17:37 | XMS_ITS | Clinical Summary ---
Author Organization [facility] Address [address] [place] [address] [place] [address] Phone Care Team Providers Care Assembler Final Name Role Phone Donato Wu MD Primary [...] Description 12/04/2025 11:30 AM EST Office Visit [facility] Medicine [address] [place] [address] Tracey Landa MD [address] [facility], [address] [place], [place] [id number] [email or web address] Health Maintenance Due Date Last Done Comments [...] Medical Devices Not on file Insurance Reinaldo [facility] [place] [address] [facility] NETWORK O Jyoti DASH [place] [employer] NETWORK HMO Jyoti DASH [place] [employer] [facility] NETWORK O Jyoti DASH [place] [employer] NETWORK O Jyoti DASH [place] [employer] NETWORK HMO Jyoti DASH [place] [employer] NETWORK HMO Jyoti DASH [place] [employer] NETWORK HMO Jyoti DASH [place] [employer] NETWORK HMO Care Teams Assembler Final Relationship Specialty Start Date End Date Donato Wu MD [address] [place] [address] [address] [place] [address] PCP - General Pediatrics 06/26/19 Additional Source Comments The information contained in this document represents components of the legal health record. It is not the complete legal health record.[facility]
--- OUTSIDE RECORDS SUMMARY | 2025-07-26 17:37 | XMS_ITS | Encounter Summary ---
Author Organization [facility] Address [address] [place] [address] Phone Care Team Providers Care Industrial Automation Engineer Name Role Phone Emperatriz Sosa MD Primary Care Provider [phone] Encounter Details Date Type Department Care Team (Late st Contact Info) Description 10/02/2013 Nurse Only [address] [address] Social History Tobacco Use Types Packs/Day Years [...] 2013 09:22 am Provider: Joyce Mensah LPN (Diesel Maintenance Electrician: Pramod Polanco MD; Waiter: Joyce Mensah LPN) Location: [facility]. ECTIVE: CC: She is here for the [...] CAPTURE: Primary Diagnosis: V04.81 Flu Clinic Orders: [id number] Flu Vaccine (In-House) 21959 Immunization administration (includes percutaneous, intradermal, subcutaneous or intramuscular injec (In-House) documented in this encounter Plan of Treatment Not on file documented as of this encounter Visit Diagnoses Not on filedocumented in this encounter Care Teams Industrial Automation Engineer Relationship Specialty Start Date End Date Emperatriz Sosa MD [address] [place] [address] PCP - General Pediatrics 11/23/22 01/09/25 documented as of this encounter
--- OUTSIDE RECORDS SUMMARY | 2025-07-26 17:37 | XMS_ITS | Encounter Summary ---
Author Organization [facility] Address [address] [place] [address] Phone Care Team Providers Care Tube Molder Fiberglass Name Role Phone Emperatriz Sosa MD Primary Care Provider [phone] Encounter Details Date Type Department Care Team (Late st Contact Info) Description 09/14/2012 Nurse Only [address] [address] Social History Tobacco Use Types Packs/Day Years [...] 2012 04:05 pm Provider: Ni Weaver CMA (Bobbin Collector: Nyla Cottrell MD; Army Ranger: Ni Weaver CMA) Location: [facility]. ECTIVE: CC: She is here for the [...] CAPTURE: Primary Diagnosis: V04.81 Flu Clinic Orders: [id number] Influenza virus vaccine, split virus, preservative free, > 3 years, for intramuscular use (In-House) [address]15[address] Immunization administration (includes percutaneous, intradermal, subcutaneous or intramuscular injec (In-House) documented in this encounter Plan of Treatment Not on file documented as of this encounter Visit Diagnoses Not on filedocumented in this encounter Care Teams Tube Molder Fiberglass Relationship Specialty Start Date End Date Emperatriz Sosa MD [address] [place] [address] PCP - General Pediatrics 11/23/22 01/09/25 documented as of this encounter
== END 2025-07-26 15:13 | disposition home or self-care (01) ==
LOC: HO.LAB 15:12
DX: Z00.00 Encounter for general adult medical examination without abnormal findings (principal); Z13.21 Encounter for screening for nutritional disorder; Z13.29 Encounter for screening for other suspected endocrine disorder; N92.6 Irregular menstruation, unspecified; J30.9 Allergic rhinitis, unspecified
CPT/HCPCS: 36415; 80053; 82306; 82607; 82746; 84443; 85025